=== PATIENT | female | born 1950 | race Caucasian/White ===

== ENCOUNTER → 2016-12-21 | Outpatient (CLI) | payer OTHER ==
--- NOTE | 2016-12-21 10:53 | US ---
ULTRASOUND EXAMINATION OF the left lower extremity WITH DOPPLER HISTORY: Soft tissue disorders FINDINGS: Examination of the left leg was performed from the groin to the calf region. Common femoral and prox imal femoral veins appear patent with good compressibility. There is possibly a tiny filling defect within the mid to proximal femoral vein with incomplete compressibility similarly the popliteal vein appears incompletely compressible. Adequate color and spectral flow are noted along the size of the se areas. Good augmentation is present. The calf veins appear normal. IMPRESSION: 1. Incomplete compressible filling defect within the femoral vein and popliteal veins. This could be secondary to an old chronic venous thrombus, possibly a forming acute DVT.
== END ==
LOC: MW.CHFP 09:26
PROVIDERS: ATTEND Emergency Medicine
DX: N18.3 Chronic kidney disease, stage 3 (moderate) (principal); I10 Essential (primary) hypertension; M79.89 Other specified soft tissue disorders; I82.402 Acute embolism and thrombosis of unspecified deep veins of left lower extremity
CPT/HCPCS: 36415; 80048; 85027; 85610; 93971-26-LT; 93971-LT

== ENCOUNTER 2017-02-01 10:57 | Day surgery (SDC) | payer OTHER ==
[~2017-02-01 10:57] MED LIST: Lactated Ringers 1,000 ML IV SCH; Lidocaine 2% 5 ML SDV ONE; Propofol 200 MG/20 ML SDV ONE; fentaNYL 100 MCG/2 ML SDV ONE
--- NOTE | 2017-02-01 11:36 | PCM.PREANE ---
Preanesthetic Assessment - Anesthesia/Transfusion/Family Hx Anesthesia History: Prior Anesthesia Reaction Other Type of Anesthesia Reaction Comment: pt states she has problems with N/V post anesthesia Family History of Anesthesia Reaction: No Transfusion History: No Prior Transfusion(s) Intubation History: Unknown - Review of Systems General: No Symptoms Pulmonary: No Symptoms Cardiovascular: No Symptoms Neurological: No Symptoms Other: Reports: None - Physical Assessment Height: 1.65 m Weight: 70.307 kg ASA Class: 3 Mental Status: Alert & Oriented x3 Airway Class: Mallampati = 2 Dentition: Reports: Normal Dentition Thyro-Mental Finger Breadths: 3 Mouth Opening Finger Breadths: 3 ROM/Head Extension: Full Lungs: Clear to auscultation, Normal respiratory effort Cardiovascular: Regular Rate, Regular Rhythm - Allergies Allergies/Adverse Reactions: Allergies Allergy/AdvReac Type Severity Reaction Status Date / Time No Known Allergies Allergy Verified 01/27/17 15:57 - Blood Blood Available: No - Anesthesia Plan Pre-Op Medication Ordered: None - Acknowledgements Anesthesia Type Planned: MAC Pt an Appropriate Candidate for the Planned Anesthesia: Yes Alternatives and Risks of Anesthesia Discussed w Pt/Guardian: Yes Pt/Guardian Understands and Agrees with Anesthesia Plan: Yes PreAnesthesia Questionnaire Other HEENT History: wears glasses Cardiovascular History: Reports: Blood clots/VTE/DVT Other Cardiovascular History: currently taking Xarelto for DVT, h/o HTN Respiratory History: Reports: None Gastrointestinal History: Reports: None Genitourinary History: Reports: Renal disease Other Genitourinary History: On dialysis for a week three years ago. Stage 3 renal disease due to HLH affecting her kidneys at present time. HR RECRUITER History: Reports: Other OB/BYN History: "tied my bladder up" Musculoskeletal History: Reports: Other (see below) Other Musculoskeletal History: osteopenia Neurological History: Reports: None Psychiatric History: Reports: None Endocrine/Metabolic History: Reports: None Hematologic History: Reports: None Immunologic History: Reports: Other (see below) Other Immunologic History: Hemophagoctic Lymphohistiocystosis Oncologic (Cancer) History: Reports: Breast (metastatic treated with mastectomy , chemo and radiation -), Ovarian (oophorectomy 01/09 for metastatic cancer), Uterine, Other (see below) (elevated CA-125) Dermatologic History: Reports: None - Past Surgical History Head Surgeries/Procedures: Reports: None HEENT Surgical History: Reports: None Cardiovascular Surgical History: Reports: None Respiratory Surgical History: Reports: None GI Surgical History: Reports: None Female Surgical History: Reports: section, Hysterectomy, Salpingo- oophorectomy Endocrine Surgical History: Reports: None Neurological Surgical History: Reports: None Musculoskeletal Surgical History: Reports: None Oncologic Surgical History: Reports: Mastectomy Other Oncologic Surgeries/Procedures: Hysterectomy, BSO Dermatological Surgical History: Reports: None Other Surgical History Comment: port-a-cath placement and removal - SUBSTANCE USE Smoking Status *Q: Never Smoker Second Hand Smoke Exposure: No Days Per Week of Alcohol Use: 0 Recreational Drug Use History: No - HOME MEDS Home Medications: Home Meds cycloSPORINE [Restasis] 1 drop EYEBOTH BID 06/03/15 [History] Alendronate Sodium [Alendronate] 5 mg PO QAM 01/27/17 [History] Anastrozole [Arimidex] 1 mg PO DAILY 01/27/17 [History] Calcium Carbonate/Vitamin D3 [Calcium 500 + Vit D 400] 1 tab PO DAILY 01/27/17 [ History] Rivaroxaban [Xarelto] 20 mg PO DAILY 01/27/17 [History] - CURRENT (IN HOUSE) MEDS Current Meds: Current Medications Lactated Ringer's (Ringers, Lactated) 1,000 mls @ 125 mls/hr IV ASDIRECTED [facility] Last Admin: 02/01/17 11:30 Dose: 125 mls/hr Discontinued Medications Fentanyl (Sublimaze) Confirm Administered Dose 100 mcg .ROUTE .STK-MED ONE Stop: 02/01/17 10:06 Lidocaine (Xylocaine-Mpf 2%) Confirm Administered Dose 5 ml .ROUTE .STK-MED ONE Stop: 02/01/17 10:05 Propofol (Diprivan 20 Ml) Confirm Administered Dose 400 mg .ROUTE .STK-MED ONE Stop: 02/01/17 10:06
--- NOTE | 2017-02-01 11:51 | PCM.OPNOTE ---
- General Post-Op/Procedure Note Date of Surgery/Procedure: 02/01/17 Operative Procedure(s): egd Findings: see dict [id number] Pre Op Diagnosis: abnl imaging study esophagus Post-Op Diagnosis: esophagitis Anesthesia Technique: Moderate sedation Primary Surgeon: Eric Morgan Complications: None Condition: Good
--- NOTE | 2017-02-01 11:55 | PCM.POSTAN ---
POST ANESTHESIA ASSESSMENT - MENTAL STATUS Mental Status: alert, oriented - RESPIRATORY Respiratory Status: respiratory rate WNL, airway patent, O2 saturation stable - CARDIOVASCULAR CV Status: pulse rate WNL, blood pressure stable - GASTROINTESTINAL GI Status: no symptoms - POST OP HYDRATION Hydration Status: adequate & stable - OBSERVATIONS Free Text/Narrative:: no anesthesiia problems
[2017-02-01 13:35] VITALS: BP 100/55
--- NOTE | 2017-02-01 19:59 | OR ---
SURGEON: Eric Morgan MD DATE OF PROCEDURE: 02/01/2017 PREOPERATIVE DIAGNOSIS: Abnormal imaging study of distal esophagus. POSTOPERATIVE DIAGNOSIS: Esophagitis. PROCEDURE PERFORMED: EGD without biopsy. COMPLICATIONS: None. DESCRIPTION OF PROCEDURE: The patient was taken to the endoscopy room, and with the [employer], Diprivan was administered. A well-lubricated EGD scope was gently inserted through the oropharynx, down the esophagus, passing through the gastroesophageal junction, into the stomach. The mucosa was examined upon the passage. Any etiology will be noted. Once in the stomach, we continued to advance to the distal antrum, passed through the pylorus into the second portion of the duodenum. Again, the mucosa was examined for any abnormality and etiology. The scope was then retrieved back to the stomach and then retroflexed to look at the fundus of the stomach. The air will be sucked out while the scope is retrieved to reduce the patient's discomfort. The patient tolerated the procedure well. There were no intraoperative complications. Dr. Morgan was present through the whole procedure. Prior to surgery, a time-out had been called, the patient identified, procedure identified and antibiotic administered. FINDINGS: 1. The patient was easily sedated with [employer] and Diprivan. The patient is soundly snoring. 2. Oropharynx and proximal esophagus was free of disease and no inflammation, stricture, ulceration. Distal esophagitis with salmon color change with what looks like an area of esophagitis. No ulceration. No blood. It is linear streaking right at the GE junction at 40. Stomach rugae is normal in appearance. No blood, bile, or food particle and antrum is a little bit inflamed and duodenum was grossly normal. The scope retrieved back to the stomach. Retroflexed to look at the fundus of stomach and there is no hiatal hernia or any other etiology; took a lot of picture in the distal esophagus and sucked out air while scope pulling out. LEONIE / DARI /[id number] TERRI
== END 2017-02-01 12:45 | disposition home or self-care (01) ==
LOC: MW.SDS 10:57
PROVIDERS: ATTEND Surgery
DX: K20.9 Esophagitis, unspecified (principal); I12.9 Hypertensive chronic kidney disease with stage 1 through stage 4 chronic kidney disease, or unspecified chronic kidney disease; N18.3 Chronic kidney disease, stage 3 (moderate); D76.1 Hemophagocytic lymphohistiocytosis; D64.9 Anemia, unspecified; I82.402 Acute embolism and thrombosis of unspecified deep veins of left lower extremity; M85.80 Other specified disorders of bone density and structure, unspecified site; Z85.3 Personal history of malignant neoplasm of breast; Z90.11 Acquired absence of right breast and nipple; Z78.0 Asymptomatic menopausal state; Z79.01 Long term (current) use of anticoagulants; Z79.52 Long term (current) use of systemic steroids; Z79.899 Other long term (current) drug therapy; Z90.710 Acquired absence of both cervix and uterus; Z90.722 Acquired absence of ovaries, bilateral; Z98.890 Other specified postprocedural states
CPT/HCPCS: 43235; J3010; J7120; 00740; J2704

== ENCOUNTER 2019-04-08 10:45 | Emergency (ER) | payer MEDICARE, OTHER ==
--- NOTE | 2019-04-08 11:59 | EDM.PDOC ---
ED HPI GENERAL MEDICAL PROBLEM - General Chief Complaint: Skin Complaint Stated Complaint: RASH ON LEGS Time Seen by Provider: 04/08/19 11:00 Source of Information: Reports: Patient History Limitations: Reports: No Limitations - History of Present Illness INITIAL COMMENTS - FREE TEXT/NARRATIVE: HISTORY AND PHYSICAL: History of present illness: Patient is a 68-year-old female presents to the ED with complaint of rash. She has a history of breast cancer, recently diagnosed with metastases to the bones. She was started on chemotherapy injections 1 month ago, last injections being 2 weeks ago. She was also taking a chemo pill but stopped this due to a low white count. She states she noticed the rash 2 days ago when her legs were itching. Rash has since spread to her whole body. She denies fevers, chills, nausea, vomiting, abdominal pain, cough, chest pain, SOB. Patient had labs drawn 4 days ago with [facility], WBC count 1.41, RBC 3.1, Hgb 9.3 , and Hct 28.5. She has a follow up with urology and oncologist this week. Review of systems: As per history of present illness and below otherwise all systems reviewed and negative. Past medical history: As per history of present illness and as reviewed below otherwise noncontributory. Surgical history: As per history of present illness and as reviewed below otherwise noncontributory. Social history: No reported history of drug or alcohol abuse. Family history: As per history of present illness and as reviewed below otherwise noncontributory. Physical exam: General: Patient sitting comfortably in no acute distress and nontoxic appearing HEENT: Atraumatic, normocephalic, pupils reactive, negative for conjunctival pallor or scleral icterus, mucous membranes moist, throat clear, neck supple, nontender, trachea midline. No meningeal signs. Lungs: Clear to auscultation, breath sounds equal bilaterally, chest nontender. Heart: S1S2, regular, negative for clicks, rubs, or overt murmur. Abdomen: Soft, nondistended, nontender. Negative for masses or hepatosplenomegaly. Negative for costovertebral tenderness. No rigidity, rebound , guarding. Pelvis: Stable nontender. Genitourinary: Deferred. Rectal: Deferred. Skin: Petechial rash of the lower legs bilaterally. There is a fine pink papular rash on her trunk. Extremities: Atraumatic, negative for cords or calf pain. Neurovascular unremarkable. Neuro: Awake, alert, oriented. Cranial nerves II through XII unremarkable. Cerebellum unremarkable. Motor and sensory unremarkable throughout. Exam nonfocal. Notes: Diagnostics: CBC, CMP, PT/INR, PTT Therapeutics: None Prescriptions: None Impression: Petechial rash Plan: 1. Follow up with primary care provider 2. Return to ED as needed as discussed Definitive disposition and diagnosis as appropriate pending reevaluation and review of above. - Related Data Allergies Allergy/AdvReac Type Severity Reaction Status Date / Time No Known Allergies Allergy Verified 04/20/18 08:44 Home Meds: Home Meds cycloSPORINE [Restasis] 1 drop EYEBOTH BID 06/03/15 [History] Tamsulosin HCl 1 tab PO DAILY 04/08/19 [History] Past Medical History HEENT History: Reports: Other (See Below) Other HEENT History: wears glasses Cardiovascular History: Reports: Blood Clots/VTE/DVT Other Cardiovascular History: hx of DVT in left lower leg- took Xarelto Respiratory History: Reports: Other (See Below) Other Respiratory History: 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 Gastrointestinal History: Reports: Diverticulosis Genitourinary History: Reports: Other (See Below) Other Genitourinary History: states has some decreased kidney function NUTRITION COORDINATOR History: Reports: Other NUTRITION COORDINATOR History: "tied my bladder up" Musculoskeletal History: Reports: Other (See Below) Other Musculoskeletal History: osteopenia Neurological History: Psychiatric History: Reports: None Endocrine/Metabolic History: Reports: None Hematologic History: Reports: Anemia Immunologic History: Reports: Other (See Below) Other Immunologic History: Hemophagoctic Lymphohistiocystosis Oncologic (Cancer) History: Reports: Bone, Breast, Ovarian Dermatologic History: Reports: None - Infectious Disease History Infectious Disease History: Reports: Chicken Pox, Measles, Mumps, Shingles - Past Surgical History Head Surgeries/Procedures: Reports: None HEENT Surgical History: Reports: None Other HEENT Surgeries/Procedures: septum surgery Cardiovascular Surgical History: Reports: None Respiratory Surgical History: Reports: None GI Surgical History: Reports: Colonoscopy, EGD Female Surgical History: Reports: Section, Mastectomy, Salpingo- Oophorectomy Endocrine Surgical History: Reports: None Neurological Surgical History: Reports: None Musculoskeletal Surgical History: Reports: None Oncologic Surgical History: Reports: Mastectomy Other Oncologic Surgeries/Procedures: Hysterectomy, BSO Dermatological Surgical History: Reports: None Social & Family History - Tobacco Use Smoking Status *Q: Never Smoker - Recreational Drug Use Recreational Drug Use: No ED ROS GENERAL - Review of Systems Review Of Systems: ROS reveals no pertinent complaints other than HPI. ED EXAM, SKIN/RASH Exam: See Below (see dictation) Course - Vital Signs Last Recorded V/S: Last Vital Signs Temp 97.1 F 04/08/19 10:51 Pulse 96 04/08/19 10:51 Resp 18 04/08/19 10:51 BP 125/73 04/08/19 10:51 Pulse Ox 99 04/08/19 10:51 - Orders/Labs/Meds Labs: Laboratory Tests 04/08/19 04/08/19 04/08/19 Range/Units 11:35 11:35 11:35 WBC 2.25 L (4.0-11.0) K/uL RBC 3.15 L (4.30-5.90) M/uL Hgb 9.3 L (12.0-16.0) g/dL Hct 28.1 L (36.0-46.0) % MCV 89.2 (80.0-98.0) fL MCH 29.5 (27.0-32.0) pg MCHC 33.1 (31.0-37.0) g/dL RDW Std Deviation 53.6 (28.0-62.0) fl RDW Coeff of Brandi 19 H (11.0-15.0) % Plt Count 143 L (150-400) K/uL MPV 9.70 (7.40-12.00) fL Add Manual Diff YES Neutrophils % (Manual) 60 (48.0-80.0) % Lymphocytes % (Manual) 28 (16.0-40.0) % Monocytes % (Manual) 12 (0.0-15.0) % Nucleated RBC % 0.0 /100WBC Absolute Seg Neuts 1.4 (1.4-5.7) Lymphocytes # (Manual) 0.6 (0.6-2.4) Monocytes # (Manual) 0.3 (0.0-0.8) Nucleated RBCs # 0 K/uL INR 1.01 APTT 26.6 (18.6-31.3) SEC Sodium 141 (136-145) mmol/L Potassium 4.2 (3.5-5.1) mmol/L Chloride 107 (98-107) mmol/L Carbon Dioxide 23.1 (21.0-32.0) mmol/L BUN 20 H (7.0-18.0) mg/dL Creatinine 1.1 H (0.6-1.0) mg/dL Est Cr Clr Drug Dosing 43.44 mL/min Estimated GFR (MDRD) 49.7 ml/min Glucose 88 (74-106) mg/dL Calcium 8.9 (8.5-10.1) mg/dL Total Bilirubin 0.6 (0.2-1.0) mg/dL AST 17 (15-37) IU/L ALT 20 (14-63) IU/L Alkaline Phosphatase 63 (46-116) U/L Total Protein 7.0 (6.4-8.2) g/dL Albumin 3.8 (3.4-5.0) g/dL Globulin 3.2 (2.6-4.0) g/dL Albumin/Globulin Ratio 1.2 (0.9-1.6) Departure - Departure Time of Disposition: 12:47 Disposition: Home, Self-Care 01 Condition: Good Clinical Impression: Petechial rash - Discharge Information Referrals: Michael Kyle MD [Primary Care Provider] - Forms: ED Department Discharge Additional Instructions: The following information is given to patients seen in the emergency department who are being discharged to home. This information is to outline your options for follow-up care. We provide all patients seen in our emergency department with a follow-up referral. The need for follow-up, as well as the timing and circumstances, are variable depending upon the specifics of your emergency department visit. If you don't have a primary care physician on staff, we will provide you with a referral. We always advise you to contact your personal physician following an emergency department visit to inform them of the circumstance of the visit and for follow-up with them and/or the need for any referrals to a consulting specialist. The emergency department will also refer you to a specialist when appropriate. This referral assures that you have the opportunity for follow-up care with a specialist. All of these measure are taken in an effort to provide you with optimal care, which includes your follow-up. Under all circumstances we always encourage you to contact your private physician who remains a resource for coordinating your care. When calling for follow-up care, please make the office aware that this follow-up is from your recent emergency room visit. If for any reason you are refused follow-up, please contact the [facility] Emergency Department at and asked to speak to the emergency department charge nurse. [facility] [address] [place] [id number] [facility] [address] [place] [id number] 1. Follow up with primary care provider 2. Return to ED as needed as discussed
[2019-04-08 13:00] VITALS: BP 101/60
== END 2019-04-08 13:00 | disposition home or self-care (01) ==
LOC: MW.ED 10:45
DX: R23.3 Spontaneous ecchymoses (principal); Z79.899 Other long term (current) drug therapy
CPT/HCPCS: 36415; 80053; 85025; 85610; 85730; 99282; 99283

== ENCOUNTER 2019-07-27 19:35 | Emergency (ER) | payer MEDICARE, OTHER ==
[2019-07-27] MEDS ORDERED: Sodium Chloride 0.9% 2.5 ML Syringe FLUSH PRN (19:52)
[2019-07-27] MEDS ORDERED: Sodium Chloride 0.9% 10 ML Syringe FLUSH PRN (19:52)
[2019-07-27] MEDS ORDERED: Acetaminophen 500 MG Tab PO ONE (19:53)
--- NOTE | 2019-07-27 19:59 | EDM.PDOC ---
ED HPI GENERAL MEDICAL PROBLEM - General Chief Complaint: Fever Stated Complaint: SPOKE TO NURSE Time Seen by Provider: 07/27/19 19:45 - History of Present Illness INITIAL COMMENTS - FREE TEXT/NARRATIVE: HISTORY AND PHYSICAL: History of present illness: The patient is a 69-year-old female who follows with [facility] and [facility] with their cancer care center and is currently receiving injections of chemotherapy 2 times per month as well as taking oral chemotherapy for breast cancer that has metastasized to bone; she presents today because she had a fever of 100.6 at home and is currently 101.6 and is following directions from her cancer doctor to come for evaluation. The patient says she has really no symptoms except a little scratchiness in her throat which she was not worried or concerned about and she has had no cough no head or neck pain no rashes no abdominal pain no nausea vomiting shortness of breath or diarrhea. She did tell her cancer doctor about 10 days ago that she thought her urine had a functional smell but as she had no dysuria frequency or urgency and the urine was not tested. The patient had her last chemotherapy shot on July 18 and this is her week off from shots and she did feel chilly throughout the afternoon and then noted the fever this evening. She says that her white blood cell count was 2.14 last week and she can best recall. The patient does have a history of breast cancer with mastectomy and aggressive treatment 11 years ago which went into remission and then 3 years ago she had her ovaries removed for cancer and she was treated again and this past January she was rediagnosed with the breast cancer with bony metastasis and has been following at the cancer care center in [place] along with [facility]. She does have a local family doctor he sees for regular checkups and she does not get a flu shot as her cancer doctor asked her to not obtain that while she was on current treatment. Patient did not take any medications for the fever prior to coming here and she is eating and drinking normally. She has no flank pain no neck or back pain and again no rashes. She says she is only here because she read that if she has a fever and is on his medications the papers told her that she needed to seek care. She says that she is concerned she might be neutropenic The patient does not have a port in place. The patient's oral chemotherapy is Palbociclib orally ( a cyclin dependent kinase CDK 4/6 inhibitor) and Fulvestrant IM -- homonal therapy Review of systems: As per history of present illness and below otherwise all systems reviewed and negative. Past medical history: As per history of present illness and as reviewed below otherwise noncontributory. Surgical history: As per history of present illness and as reviewed below otherwise noncontributory. Social history: No reported history of drug or alcohol abuse. Family history: As per history of present illness and as reviewed below otherwise noncontributory. Physical exam: General: Well-developed well-nourished female who is nontoxic and vital signs are noted by me. She is speaking clearly without breathlessness or hoarse or muffled voice and moves easily in the ED without distress. HEENT: Atraumatic, normocephalic, pupils reactive, negative for conjunctival pallor or scleral icterus, mucous membranes moist, throat clear, neck supple, nontender, trachea midline. There is no oral pharyngeal erythema or exudates there is no cervical adenopathy or nuchal rigidity Lungs: Clear to auscultation, breath sounds equal bilaterally, chest nontender. There is no wheezing stridor or work of breathing Heart: S1S2, regular, negative for clicks, rubs, or JVD. Abdomen: Soft, nondistended, nontender. Negative for masses or hepatosplenomegaly. Negative for costovertebral tenderness. Pelvis: Stable nontender. Genitourinary: Deferred. Rectal: Deferred. Extremities: Atraumatic, negative for cords or calf pain. Neurovascular unremarkable. Neuro: Awake, alert, oriented. Cranial nerves II through XII unremarkable. Cerebellum unremarkable. Motor and sensory unremarkable throughout. Exam nonfocal. Skin: Turgor is normal and there is no evidence of any overt rashes or lesions Diagnostics: CBC CMP UA urine culture blood cultures influenza swab rapid strep lactic acid chest x-ray Therapeutics: Saline lock Tylenol IV fluids Levaquin 2124:Her repeat temperature is 100 after 1 g of Tylenol. I'm currently awaiting her UA results as well as chest x-ray and will contact her oncologist for further management 2244: I have been attempting to get a hold of the on-call oncologist at [facility], Dr. Pham. He has not been returning his pages so I will continue to have one call attempt to get a hold of them so I can discuss this case with him. The patient does follow with the oncology clinic there. As her urine is significant for a UTI I will go ahead and give her a dose of Levaquin here and discharge her home on Levaquin and I discussed with her testing results and need to connect with her oncologist on Tuesday. I will continue to attempt to get a hold of this oncologist to discuss this case and I will call the patient with any changes in care plan as needed. The patient is currently not neutropenic with a white cell count of 3.09 and a rough ANC of 1854. Impression: Fever with history of chemotherapy , UTI Definitive disposition and diagnosis as appropriate pending reevaluation and review of above. - Related Data Allergies Allergy/AdvReac Type Severity Reaction Status Date / Time No Known Allergies Allergy Verified 07/27/19 19:40 Home Meds: Home Meds Fulvestrant [Faslodex] 250 mg IM ASDIRECTED 07/27/19 [History] Palbociclib [Ibrance] 75 mg PO ASDIRECTED 07/27/19 [History] Past Medical History HEENT History: Reports: Other (See Below) Other HEENT History: wears glasses Cardiovascular History: Reports: Blood Clots/VTE/DVT Other Cardiovascular History: hx of DVT in left lower leg- took Xarelto Respiratory History: Reports: Other (See Below) Other Respiratory History: 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 Gastrointestinal History: Reports: Diverticulosis Genitourinary History: Reports: Other (See Below) Other Genitourinary History: states has some decreased kidney function VESSEL OPERATOR History: Reports: Other VESSEL OPERATOR History: "tied my bladder up" Musculoskeletal History: Reports: Other (See Below) Other Musculoskeletal History: osteopenia Neurological History: Psychiatric History: Reports: None Endocrine/Metabolic History: Reports: None Hematologic History: Reports: Anemia Immunologic History: Reports: Other (See Below) Other Immunologic History: Hemophagoctic Lymphohistiocystosis Oncologic (Cancer) History: Reports: Bone, Breast, Ovarian Dermatologic History: Reports: None - Infectious Disease History Infectious Disease History: Reports: Chicken Pox, Measles, Mumps, Shingles - Past Surgical History Head Surgeries/Procedures: Reports: None HEENT Surgical History: Reports: None Other HEENT Surgeries/Procedures: septum surgery Cardiovascular Surgical History: Reports: None Respiratory Surgical History: Reports: None GI Surgical History: Reports: Colonoscopy, EGD Female Surgical History: Reports: Section, Mastectomy, Salpingo- Oophorectomy Endocrine Surgical History: Reports: None Neurological Surgical History: Reports: None Musculoskeletal Surgical History: Reports: None Oncologic Surgical History: Reports: Mastectomy Other Oncologic Surgeries/Procedures: Hysterectomy, BSO Dermatological Surgical History: Reports: None Social & Family History - Family History Family Medical History: Noncontributory - Tobacco Use Smoking Status *Q: Never Smoker Second Hand Smoke Exposure: No - Caffeine Use Caffeine Use: Reports: Coffee - Recreational Drug Use Recreational Drug Use: No ED ROS GENERAL - Review of Systems Review Of Systems: ROS reveals no pertinent complaints other than HPI. ED EXAM, GENERAL - Physical Exam Exam: See Below (See dictation) Course - Vital Signs Last Recorded V/S: Last Vital Signs Temp 37.8 C 07/27/19 20:32 Pulse 107 H 07/27/19 19:42 Resp 18 07/27/19 19:42 BP 133/52 L 07/27/19 19:42 Pulse Ox 98 07/27/19 19:42 - Orders/Labs/Meds Orders: Active Orders 24 hr Category Date Time Status Communication Order [RC] STAT Care 07/27/19 20:28 Active Oxygen Therapy, ED [RC] ASDIRECTED Care 07/27/19 19:52 Active Pulse Oximetry [RC] ASDIRECTED Care 07/27/19 19:52 Active CULTURE BLOOD [BC] Stat Lab 07/27/19 20:50 Received CULTURE BLOOD [] Stat Lab 07/27/19 21:05 Received CULTURE STREP A CONFIRMATION [] Stat Lab 07/27/19 20:03 Results CULTURE URINE [] Stat Lab 07/27/19 21:00 Received STREP SCRN A RAPID W CULT CONF [] Stat Lab 07/27/19 20:03 Results Levofloxacin/Dextrose 5%-Water [Levaquin in D5W 500 MG/ Med 07/27/19 21:47 Ordered 100 ML] 500 mg Premix Bag 1 bag IV ONETIME Sodium Chloride 0.9% [Normal Saline] 1,000 ml Med 07/27/19 21:05 Active IV STAT Sodium Chloride 0.9% [Saline Flush] Med 07/27/19 19:52 Active 10 ml FLUSH ASDIRECTED PRN Sodium Chloride 0.9% [Saline Flush] Med 07/27/19 19:52 Active 2.5 ml FLUSH ASDIRECTED PRN Blood Culture x2 Reflex Set [OM.PC] Stat Ot 07/27/19 19:52 Ordered Saline Lock Insert [OM.PC] Stat Ot 07/27/19 19:52 Ordered Medication Orders Sodium Chloride (Normal Saline) 1,000 mls @ 999 mls/hr IV STAT ONE Stop: 07/27/19 22:05 Last Admin: 07/27/19 21:23 Dose: 999 mls/hr Sodium Chloride (Saline Flush) 10 ml FLUSH ASDIRECTED PRN PRN Reason: Keep Vein Open Sodium Chloride (Saline Flush) 2.5 ml FLUSH ASDIRECTED PRN PRN Reason: Keep Vein Open Labs: Laboratory Tests 07/27/19 07/27/19 07/27/19 Range/Units 20:30 20:30 20:30 WBC 3.09 L (4.0-11.0) K/uL RBC 2.74 L (4.30-5.90) M/uL Hgb 9.3 L (12.0-16.0) g/dL Hct 27.1 L (36.0-46.0) % MCV 98.9 H (80.0-98.0) fL MCH 33.9 H (27.0-32.0) pg MCHC 34.3 (31.0-37.0) g/dL RDW Std Deviation 50.9 (28.0-62.0) fl RDW Coeff of Brandi 14 (11.0-15.0) % Plt Count 87 L (150-400) K/uL MPV 9.80 (7.40-12.00) fL Neut % (Auto) 60.8 (48.0-80.0) % Lymph % (Auto) 28.8 (16.0-40.0) % Otero % (Auto) 9.4 (0.0-15.0) % Eos % (Auto) 0.0 (0.0-7.0) % Baso % (Auto) 1.0 (0.0-1.5) % Neut # (Auto) 1.9 (1.4-5.7) K/uL Lymph # (Auto) 0.9 (0.6-2.4) K/uL Otero # (Auto) 0.3 (0.0-0.8) K/uL Eos # (Auto) 0.0 (0.0-0.7) K/uL Baso # (Auto) 0.0 (0.0-0.1) K/uL Nucleated RBC % 0.0 /100WBC Nucleated RBCs # 0 K/uL Lactate 0.5 (0.20-2.00) mmol/L Sodium 141 (136-145) mmol/L Potassium 3.9 (3.5-5.1) mmol/L Chloride 105 (98-107) mmol/L Carbon Dioxide 26.5 (21.0-32.0) mmol/L BUN 22 H (7.0-18.0) mg/dL Creatinine 1.2 H (0.6-1.0) mg/dL Est Cr Clr Drug Dosing 42.59 mL/min Estimated GFR (MDRD) 44.8 ml/min Glucose 90 (74-106) mg/dL Calcium 8.7 (8.5-10.1) mg/dL Total Bilirubin 0.6 (0.2-1.0) mg/dL AST 17 (15-37) IU/L ALT 20 (14-63) IU/L Alkaline Phosphatase 44 L (46-116) U/L Total Protein 7.0 (6.4-8.2) g/dL Albumin 3.7 (3.4-5.0) g/dL Globulin 3.3 (2.6-4.0) g/dL Albumin/Globulin Ratio 1.1 (0.9-1.6) Urine Color Urine Appearance Urine pH (5.0-8.0) Ur Specific [place] (1.001-1.035) Urine Protein (NEGATIVE) mg/dL Urine Glucose (UA) (NEGATIVE) mg/dL Urine Ketones (NEGATIVE) mg/dL Urine Occult Blood (NEGATIVE) Urine Nitrite (NEGATIVE) Urine Bilirubin (NEGATIVE) Urine Urobilinogen (<2.0) EU/dL Ur Leukocyte Esterase (NEGATIVE) Urine RBC (0-2/HPF) Urine WBC (0-5/HPF) Ur Epithelial Cells (NONE-FEW) Urine Bacteria (NEGATIVE) Urine Mucus (NONE-MOD) 07/27/19 Range/Units 21:00 WBC (4.0-11.0) K/uL RBC (4.30-5.90) M/uL Hgb (12.0-16.0) g/dL Hct (36.0-46.0) % MCV (80.0-98.0) fL MCH (27.0-32.0) pg MCHC (31.0-37.0) g/dL RDW Std Deviation (28.0-62.0) fl RDW Coeff of Brandi (11.0-15.0) % Plt Count (150-400) K/uL MPV (7.40-12.00) fL Neut % (Auto) (48.0-80.0) % Lymph % (Auto) (16.0-40.0) % Otero % (Auto) (0.0-15.0) % Eos % (Auto) (0.0-7.0) % Baso % (Auto) (0.0-1.5) % Neut # (Auto) (1.4-5.7) K/uL Lymph # (Auto) (0.6-2.4) K/uL Otero # (Auto) (0.0-0.8) K/uL Eos # (Auto) (0.0-0.7) K/uL Baso # (Auto) (0.0-0.1) K/uL Nucleated RBC % /100WBC Nucleated RBCs # K/uL Lactate (0.20-2.00) mmol/L Sodium (136-145) mmol/L Potassium (3.5-5.1) mmol/L Chloride (98-107) mmol/L Carbon Dioxide (21.0-32.0) mmol/L BUN (7.0-18.0) mg/dL Creatinine (0.6-1.0) mg/dL Est Cr Clr Drug Dosing mL/min Estimated GFR (MDRD) ml/min Glucose (74-106) mg/dL Calcium (8.5-10.1) mg/dL Total Bilirubin (0.2-1.0) mg/dL AST (15-37) IU/L ALT (14-63) IU/L Alkaline Phosphatase (46-116) U/L Total Protein (6.4-8.2) g/dL Albumin (3.4-5.0) g/dL Globulin (2.6-4.0) g/dL Albumin/Globulin Ratio (0.9-1.6) Urine Color YELLOW Urine Appearance CLOUDY Urine pH 6.5 (5.0-8.0) Ur Specific [place] 1.015 (1.001-1.035) Urine Protein 30 H (NEGATIVE) mg/dL Urine Glucose (UA) NEGATIVE (NEGATIVE) mg/dL Urine Ketones NEGATIVE (NEGATIVE) mg/dL Urine Occult Blood LARGE H (NEGATIVE) Urine Nitrite POSITIVE H (NEGATIVE) Urine Bilirubin NEGATIVE (NEGATIVE) Urine Urobilinogen 0.2 (<2.0) EU/dL Ur Leukocyte Esterase LARGE H (NEGATIVE) Urine RBC 25-30 (0-2/HPF) Urine WBC 55-60 (0-5/HPF) Ur Epithelial Cells FEW (NONE-FEW) Urine Bacteria 1+ H (NEGATIVE) Urine Mucus LIGHT (NONE-MOD) Meds: Medications Generic Name Dose Route Start Last Admin Trade Name Freq PRN Reason Stop Dose Admin Sodium Chloride 1,000 mls @ 999 mls/hr 07/27/19 21:05 07/27/19 21:23 Normal Saline IV 07/27/19 22:05 999 mls/hr STAT ONE Administration Sodium Chloride 10 ml 07/27/19 19:52 Saline Flush FLUSH ASDIRECTED PRN Keep Vein Open Sodium Chloride 2.5 ml 07/27/19 19:52 Saline Flush FLUSH ASDIRECTED PRN Keep Vein Open Discontinued Medications Generic Name Dose Route Start Last Admin Trade Name Freq PRN Reason Stop Dose Admin Acetaminophen 1,000 mg 07/27/19 19:53 07/27/19 20:02 Tylenol Extra Strength PO 07/27/19 19:54 1,000 mg ONETIME ONE Administration Departure - Departure Time of Disposition: 21:49 Disposition: Home, Self-Care 01 Condition: Good Clinical Impression: History of chemotherapy UTI (urinary tract infection) Qualifiers: Urinary tract infection type: site unspecified Hematuria presence: without hematuria Qualified Code(s): N39.0 - Urinary tract infection, site not specified Fever Qualifiers: Fever type: unspecified Qualified Code(s): R50.9 - Fever, unspecified - Discharge Information Referrals: PCP,None [Primary Care Provider] - Forms: ED Department Discharge Additional Instructions: The following information is given to patients seen in the emergency department who are being discharged to home. This information is to outline your options for follow-up care. We provide all patients seen in our emergency department with a follow-up referral. The need for follow-up, as well as the timing and circumstances, are variable depending upon the specifics of your emergency department visit. If you don't have a primary care physician on staff, we will provide you with a referral. We always advise you to contact your personal physician following an emergency department visit to inform them of the circumstance of the visit and for follow-up with them and/or the need for any referrals to a consulting specialist. The emergency department will also refer you to a specialist when appropriate. This referral assures that you have the opportunity for followup care with a specialist. All of these measure are taken in an effort to provide you with optimal care, which includes your followup. Under all circumstances we always encourage you to contact your private physician who remains a resource for coordinating your care. When calling for followup care, please make the office aware that this follow-up is from your recent emergency room visit. If for any reason you are refused follow-up, please contact the [facility] emergency department at and ask to speak to the emergency department charge nurse. [facility] Primary care- Internal [place] [address] Please continue to push fluids and monitor your temperature treating it with Tylenol or [id number] ibuprofen. These take the Levaquin as you have been prescribed taking the first dose tomorrow afternoon as you have been given a dose here. I will continue to try to connect with your oncology team at [facility] for please connect with them on Tuesday to let them know how you're doing. If any results from your blood or urine cultures indicate a change in treatment plan he will be contacted by one of our nursing staff. Return to ER as needed and as discussed. - My Orders Last 24 Hours: My Active Orders 07/27/19 19:52 Oxygen Therapy, ED [RC] ASDIRECTED Pulse Oximetry [RC] ASDIRECTED Sodium Chloride 0.9% [Saline Flush] 10 ml FLUSH ASDIRECTED PRN Sodium Chloride 0.9% [Saline Flush] 2.5 ml FLUSH ASDIRECTED PRN Blood Culture x2 Reflex Set [OM.PC] Stat Saline Lock Insert [OM.PC] Stat 07/27/19 20:03 CULTURE STREP A CONFIRMATION [RM] Stat STREP SCRN A RAPID W CULT CONF [RM] Stat 07/27/19 20:28 Communication Order [RC] STAT 07/27/19 20:50 CULTURE BLOOD [BC] Stat 07/27/19 21:00 CULTURE URINE [RM] Stat 07/27/19 21:05 CULTURE BLOOD [BC] Stat Sodium Chloride 0.9% [Normal Saline] 1,000 ml IV STAT 07/27/19 21:47 Levofloxacin/Dextrose 5%-Water [Levaquin in D5W 500 MG/100 ML] 500 mg Premix Bag 1 bag IV ONETIME - Assessment/Plan Last 24 Hours: My Active Orders 07/27/19 19:52 Oxygen Therapy, ED [RC] ASDIRECTED Pulse Oximetry [RC] ASDIRECTED Sodium Chloride 0.9% [Saline Flush] 10 ml FLUSH ASDIRECTED PRN Sodium Chloride 0.9% [Saline Flush] 2.5 ml FLUSH ASDIRECTED PRN Blood Culture x2 Reflex Set [OM.PC] Stat Saline Lock Insert [OM.PC] Stat 07/27/19 20:03 CULTURE STREP A CONFIRMATION [RM] Stat STREP SCRN A RAPID W CULT CONF [RM] Stat 07/27/19 20:28 Communication Order [RC] STAT 07/27/19 20:50 CULTURE BLOOD [BC] Stat 07/27/19 21:00 CULTURE URINE [RM] Stat 07/27/19 21:05 CULTURE BLOOD [BC] Stat Sodium Chloride 0.9% [Normal Saline] 1,000 ml IV STAT 07/27/19 21:47 Levofloxacin/Dextrose 5%-Water [Levaquin in D5W 500 MG/100 ML] 500 mg Premix Bag 1 bag IV ONETIME
[2019-07-27 20:57] LABS: CARBON DIOXIDE,CO2 26.5 mmol/L (21.0-32.0); POTASSIUM,K 3.9 mmol/L (3.5-5.1)
[2019-07-27] MEDS ORDERED: Sodium Chloride 0.9% 1,000 ML IV ONE (21:05)
--- NOTE | 2019-07-27 21:42 | CR ---
INDICATION: Cough, fever, sore throat COMPARISON: None available. FINDINGS: PA and lateral views of the chest were obtained. The lungs are clear. No focal or diffuse infiltrates are present. The heart is normal in size. The mediastinum is normal in appearance. There is mild scoliosis of the thoracic spine convex towards the left. There is mild anterior wedging of the T6 through T8 vertebral bodies consistent with old mild compression fractures. IMPRESSION: No active disease in the chest. Dictated by Luigi Gillette MD @ Jul 27 2019 9:40PM Signed by Dr. Luigi Gillette @ Jul 27 2019 9:41PM
[2019-07-27] MEDS ORDERED: Levofloxacin/Dextrose 5%-Water 500 MG in Premix Bag 1 BAG IV ONE (21:47)
[2019-07-27 23:25] VITALS: BP 109/38; PULSE 90
== END 2019-07-27 23:21 | disposition home or self-care (01) ==
LOC: MW.ED 19:35
DX: N39.0 Urinary tract infection, site not specified (principal); R50.9 Fever, unspecified
CPT/HCPCS: 36415; 71046; 80053; 81001; 83605; 85025; 87040; 87081; 87086; 87804; 87880; 96361; 96365; 99283; A9270; J1956; J7040; 99285

== ENCOUNTER 2020-06-30 21:46 | Emergency (ER) | payer MEDICARE, OTHER ==
[2020-06-30 21:56] VITALS: BP 124/79; PULSE 91
[2020-07-01] MEDS ORDERED: Cephalexin 500 MG Cap PO ONE (01:24)
--- NOTE | 2020-07-01 01:27 | EDM.PDOC ---
ED HPI GENERAL MEDICAL PROBLEM - General Chief Complaint: Genitourinary Problem Stated Complaint: possible UTI Time Seen by Provider: 06/30/20 23:50 - History of Present Illness INITIAL COMMENTS - FREE TEXT/NARRATIVE: CHIEF COMPLAINT(S): UTI HISTORY OF PRESENT ILLNESS: This is a 69-year-old woman with a past medical history of chronic UTI and unspecified bone cancer who follows up with [facility] and gets triweekly laboratory and urinalysis sent to her clinic who comes to the emergency department with a chief complaint of urinary tract infection. The patient states that she noted today that her urine started to smell foul and that she experienced some right back pain. She denies any fevers or chills. She denies any chest pain, shortness of breath, abdominal pain, nausea or vomiting. She states that she just came into the emergency department because of concern for urinary tract infection. She states that in the past they have given her the antibiotic that people received. She describes her back pain as achy in nature without any radiation. She rates it as 3 out of 10. She denies any aggravating or relieving symptoms. She states that there are no associated symptoms. REVIEW OF SYSTEMS: Constitutional: Denies fever, chills. Eyes: Denies eye pain Ears, Nose, Mouth, & Throat: Denies earache Cardiovascular: Denies chest pain Respiratory: Denies shortness of breath Gastrointestinal: Denies Nausea, vomiting, diarrhea, hematochezia. Genitourinary: Positive for some foul-smelling urine MSK: Positive for right back pain Neurological: Denies blurred vision Psychiatric: Denies depression PAST MEDICAL HISTORY: As per history of present illness and as reviewed below otherwise noncontributory. SURGICAL HISTORY: As per history of present illness and as reviewed below otherwise noncontributory. SOCIAL HISTORY: As per history of present illness and as reviewed below otherwise noncontributory. FAMILY HISTORY: As per history of present illness and as reviewed below otherwise noncontributory. EXAMINATION OF ORGAN SYSTEMS/BODY AREAS: Constitutional: Blood pressure was 124/79, heart rate 91, respiratory rate 16 with an oxygen saturation 9 9% on room air. Temperature 36.2 General: Overall well-appearing elderly woman who is in no acute distress Psychiatric: Appropriate mood and affect. Eyes: No scleral icterus or conjunctival erythema ENMT: Moist mucous membranes. No pharyngeal erythema Cardiovascular: Regular, rate, and rythym. No gallops, murmurs, or rubs. Bilateral upper extremity pulses symmetric and intact. No peripheral edema. No JVD. Respiratory: Lungs clear to auscultation bilaterally. No wheezes, rales, or rhonchi. Gastrointestinal: Soft, non-tender, non-distended. Normoactive bowel sounds Genitourinary: No suprapubic tenderness no CVA tenderness. There is paraspinal muscle tenderness in the lumbar region on the left side. Musculoskeletal: Normal range of motion. Skin: No lesions or abrasions. Neurological: Alert, GCS 15 MEDICAL DECISION MAKING AND COURSE IN THE ED WITH INTERPRETATION/REVIEW OF DIAGNOSTIC STUDIES: This is a 69-year-old woman with a past medical history of recurrent UTI and unspecified bone cancer who follows up with [facility] regarding her recurrent UTIs and bone cancer who comes to the emergency department with concern for urinary tract infection and right back pain who has evidence of paraspinal muscle tenderness on examination. At this time we will obtain a urinalysis. I did review the patient's prior urine cultures and they have all been susceptible to Keflex which I believe is the antibiotic that she was discussing. Urinalysis was a clean catch and was positive for leukocyte esterase, positive for nitrites, and positive for blood. WBC count 35-40. Interpretation: Positive I did review the patient's prior urinalysis is and it appears that the patient always has microscopic hematuria. After urinalysis I did provide the patient with Keflex by mouth. I discussed with her that I will be prescribing her a prescription to be used twice a day. I discussed the importance of contacting her physician in [facility] for further evaluation. She is to return if any fevers, vomiting, or worsening back pain. She was amenable to discharge at this time and had no further questions DISPOSITION: The patient was discharged home in stable condition. The patient will follow up with her physician at [facility] within 1 to 2 weeks CONDITION: Fair PROCEDURES: None FINAL IMPRESSION(S)/DIAGNOSES: 1. Acute urinary tract infection Doug Singh M.D. left flank Pain Score (Numeric/FACES): 5 - Related Data Allergies Allergy/AdvReac Type Severity Reaction Status Date / Time No Known Allergies Allergy Verified 06/30/20 21:57 Home Meds: Home Meds Calcium Carbonate/Vitamin D3 [Calcium 1,000 + D3 Caplet] 1 tab PO DAILY 06/30/20 [History] Capecitabine 06/30/20 [History] Gabapentin [Neurontin] 1 tab PO BEDTIME 06/30/20 [History] cycloSPORINE [Restasis Multidose] 1 drop EYEBOTH BID 06/30/20 [History] cephALEXin [Keflex] 500 mg PO BID 5 Days #10 capsule 07/01/20 [Rx] Past Medical History HEENT History: Reports: Other (See Below) Other HEENT History: wears glasses Cardiovascular History: Reports: Blood Clots/VTE/DVT Other Cardiovascular History: hx of DVT in left lower leg- took Xarelto Respiratory History: Reports: Other (See Below) Other Respiratory History: 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 Gastrointestinal History: Reports: Diverticulosis Genitourinary History: Reports: UTI, Recurrent, Other (See Below) Other Genitourinary History: states has some decreased kidney function PREFLIGHT MECHANIC History: Reports: Other PREFLIGHT MECHANIC History: "tied my bladder up" Musculoskeletal History: Reports: Other (See Below) Other Musculoskeletal History: osteopenia Neurological History: Psychiatric History: Reports: None Endocrine/Metabolic History: Reports: None Hematologic History: Reports: Anemia Immunologic History: Reports: Other (See Below) Other Immunologic History: Hemophagoctic Lymphohistiocystosis Oncologic (Cancer) History: Reports: Bone, Breast, Ovarian Dermatologic History: Reports: None - Infectious Disease History Infectious Disease History: Reports: Measles, Mumps, Shingles - Past Surgical History Head Surgeries/Procedures: Reports: None HEENT Surgical History: Reports: None Other HEENT Surgeries/Procedures: septum surgery Cardiovascular Surgical History: Reports: None Respiratory Surgical History: Reports: None GI Surgical History: Reports: Colonoscopy, EGD Female Surgical History: Reports: Section, Mastectomy, Salpingo- Oophorectomy, Other (See Below) Other Female Surgeries/Procedures: Kidney stents Endocrine Surgical History: Reports: None Neurological Surgical History: Reports: None Musculoskeletal Surgical History: Reports: None Oncologic Surgical History: Reports: Mastectomy Other Oncologic Surgeries/Procedures: Hysterectomy, BSO Dermatological Surgical History: Reports: None Social & Family History - Family History Family Medical History: Noncontributory - Tobacco Use Smoking Status *Q: Never Smoker - Caffeine Use Caffeine Use: Reports: Coffee - Recreational Drug Use Recreational Drug Use: No ED ROS GENERAL - Review of Systems Review Of Systems: See Below ED EXAM, GENERAL - Physical Exam Exam: See Below Course - Vital Signs Last Recorded V/S: Last Vital Signs Temp 36.2 C 06/30/20 21:54 Pulse 91 06/30/20 21:54 Resp 16 06/30/20 21:54 BP 124/79 06/30/20 21:54 Pulse Ox 99 06/30/20 21:54 - Orders/Labs/Meds Orders: Active Orders 24 hr Category Date Time Status CULTURE URINE [RM] Stat Lab 06/30/20 22:04 Received Labs: Laboratory Tests 06/30/20 Range/Units 22:04 Urine Color YELLOW Urine Appearance SLT CLOUDY Urine pH 7.0 (5.0-8.0) Ur Specific Johnston 1.010 (1.001-1.035) Urine Protein 30 H (NEGATIVE) mg/dL Urine Glucose (UA) NEGATIVE (NEGATIVE) mg/dL Urine Ketones NEGATIVE (NEGATIVE) mg/dL Urine Occult Blood LARGE H (NEGATIVE) Urine Nitrite POSITIVE H (NEGATIVE) Urine Bilirubin NEGATIVE (NEGATIVE) Urine Urobilinogen 0.2 (<2.0) EU/dL Ur Leukocyte Esterase MODERATE H (NEGATIVE) Urine RBC 30-35 (0-2/HPF) Urine WBC 35-40 (0-5/HPF) Ur Epithelial Cells FEW (NONE-FEW) Urine Bacteria 1+ H (NEGATIVE) Urine Mucus LIGHT (NONE-MOD) Meds: Medications Discontinued Medications Generic Name Dose Route Start Last Admin Trade Name Freq PRN Reason Stop Dose Admin Cephalexin 500 mg 07/01/20 01:24 07/01/20 01:40 Keflex PO 07/01/20 01:25 500 mg ONETIME ONE Administration Departure - Departure Time of Disposition: :26 Disposition: Home, Self-Care 01 Condition: Fair Clinical Impression: UTI, Urinary tract infectious disease - Discharge Information Prescriptions: cephALEXin [Keflex] 500 mg PO BID 5 Days #10 capsule Instructions: Urinary Tract Infection, Adult Referrals: Michael Kyle MD [Primary Care Provider] - Forms: ED Department Discharge Additional Instructions: The patient is informed of any results of their evaluation and diagnostic workup and all questions are answered. They are given discharge instructions and return precautions. The patient is stable for discharge. The patient states they understand and agree with the plan and that they will return if their symptoms get worse or if they have any new concerns. The following information is given to patients seen in the emergency department who are being discharged to home. This information is to outline your options for follow-up care. We provide all patients seen in our emergency department with a follow-up referral. The need for follow-up, as well as the timing and circumstances, are variable depending upon the specifics of your emergency department visit. If you don't have a primary care physician on staff, we will provide you with a referral. We always advise you to contact your personal physician following an emergency department visit to inform them of the circumstance of the visit and for follow-up with them and/or the need for any referrals to a consulting specialist. The emergency department will also refer you to a specialist when appropriate. This referral assures that you have the opportunity for follow-up care with a specialist. All of these measure are taken in an effort to provide you with optimal care, which includes your follow-up. Under all circumstances we always encourage you to contact your private physician who remains a resource for coordinating your care. When calling for follow-up care, please make the office aware that this follow-up is from your recent emergency room visit. If for any reason you are refused follow-up, please contact the [facility] Emergency Department at and asked to speak to the emergency department charge nurse. Please follow-up with your primary care physician within 3 to 5 days. If you have any worsening back pain or pain when you pee please return to the emergency department. If you develop a fever please return to the emergency department please. Sepsis Event Note (ED) - Evaluation Sepsis Screening Result: No Definite Risk - Focused Exam Vital Signs: Vital Signs Temp Pulse Resp BP Pulse Ox 06/30/20 21:54 36.2 C 91 16 124/79 99
== END 2020-07-01 01:45 | disposition home or self-care (01) ==
LOC: MW.ED 21:46
DX: N39.0 Urinary tract infection, site not specified (principal); D72.829 Elevated white blood cell count, unspecified
CPT/HCPCS: 81001; 87086; 99283; A9270; 99282

== ENCOUNTER 2021-02-05 16:03 | Emergency (ER) | payer MEDICARE, OTHER ==
[2021-02-05] MEDS ORDERED: Sodium Chloride 0.9% 1,000 ML IV ONE ×2 (16:56→22:15)
--- NOTE | 2021-02-05 18:06 | PCM.EKG ---
#1 Interpretation EKG Date: 02/05/21 Time: 17:56 Rhythm: NSR Rate (Beats/Min): 90 Gay: Normal P-Wave: Present QRS: Normal ST-T: Normal QT: Normal Comparison: No Change (06/10/15) EKG Interpretation Comments: SinuS Rhythm
--- NOTE | 2021-02-05 18:32 | CR ---
INDICATION: Fatigue, history of cancer TECHNIQUE: Chest radiograph 1 view COMPARISON: 07/27/2019 FINDINGS: Mediastinum: The mediastinum is normal in appearance. The heart silhouette is normal in size and morphology. Right Port-A-Cath is present with the tip in the SVC. Lung: Both lungs are unremarkable in appearance. No sign of pleural effusion seen. No pneumothorax is identified. Bone and Soft tissue: Mild levoscoliosis of the thoracic spine is noted without change. IMPRESSION: 1. No acute cardiopulmonary disease is seen. Dictated by Kemar Blanco MD @ 02/05/2021 6:29:31 PM Dictated by: Kemar Blanco MD @ 02/05/2021 18:29:37 (Electronically Signed)
[2021-02-05 19:04] LABS: CORONAVIRUS COVID-19 NAA NEGATIVE (NEGATIVE); INFLUENZA A NAA NEGATIVE (NEGATIVE); INFLUENZA B NAA NEGATIVE (NEGATIVE)
[2021-02-05 19:26] LABS: CARBON DIOXIDE,CO2 23.2 mmol/L (21.0-32.0)
[2021-02-05] MEDS ORDERED: cefTRIAXone 1 GM in Premix Bag 1 BAG IV ONE ×2 (19:31→19:39)
[2021-02-05] MEDS ORDERED: Calcium Gluconate 10% 1 GM/10 ML SDV IVPUSH ONE (19:38)
--- NOTE | 2021-02-05 21:40 | US ---
INDICATION: Bilateral renal stents. Assess flow. TECHNIQUE: Bilateral renal ultrasound. FINDINGS: There is right-sided hydronephrosis with the right kidney measuring 10.6 x 5.3 x 6.3 cm. The right renal cortex measures 1.5 cm. Two renal stents are reportedly present on the right incompletely visualized. There is likely mild left-sided hydronephrosis. The left kidney measures 11.0 x 6.1 x 5.1 cm. The left renal cortex measures 1.5 cm. There is a reported single left renal stent poorly visualized. Consider CT for further evaluation to assess the course of both stents. This could be performed without intravenous contrast. IMPRESSION: Hydronephrosis right greater than left. Bilateral renal stents suboptimally visualized. Consider noncontrast CT for further evaluation. Dictated by Stephan Evans MD @ 02/05/2021 9:39:[address] Stephan Evans @ Feb 05 2021 9:39PM
--- NOTE | 2021-02-05 22:28 | EDM.PDOC ---
ED HPI GENERAL MEDICAL PROBLEM - General Chief Complaint: General Stated Complaint: WEAKNESS Time Seen by Provider: 02/05/21 16:42 Source of Information: Reports: Patient History Limitations: Reports: No Limitations - History of Present Illness INITIAL COMMENTS - FREE TEXT/NARRATIVE: HISTORY AND PHYSICAL: History of present illness: Patient is a 70-year-old female, with a history of metastatic breast cancer spread to the bone, right kidney, and HLH (hemophagocytic lymphohistiocytosis) who presents to the ED today secondary to generalized weakness x4 days. Patient states that she is currently under a chemo regimen where she receives chemotherapy at [facility] with her oncology team at [place] once a week for 3 weeks and then has 1 week off. Patient states that she received her last chemotherapy on . Patient states that she has noticed after receiving care chemotherapy, she gets a few episodes of watery diarrhea. Patient states that as typical, she began giving diarrhea and took Imodium like usual which stopped the diarrhea. Patient states her last episode of diarrhea was on Tuesday. Patient states she started noticing Tuesday evening that she was more tired and did not have the energy to "get chores done "around the house such as the dishes. Patient states that this is unusual for her and she has not gotten out of bed and has had a decrease in appetite. Patient states that she associated this to "dehydration "due to the decrease in appetite with the occasional episodes of diarrhea. Patient denies any associative pain or any other symptoms. Patient denies fever, chills, chest pain, shortness of breath, or cough. Denies headache, neck stiff ness, change in vision, syncope, or near syncope. Denies nausea, vomiting, abdominal pain, or dysuria. Has not noted any blood in urine or stool. Review of systems: As per history of present illness and below otherwise all systems reviewed and negative. Past medical history: As per history of present illness and as reviewed below otherwise noncontributory. Surgical history: As per history of present illness and as reviewed below otherwise noncontributory. Social history: See social history for further information Family history: As per history of present illness and as reviewed below otherwise noncontributory. Physical exam: General: Patient is alert, oriented, and in no acute distress. Patient sitting comfortably on exam table. Tachycardic 115-120 otherwise vitally stable and reviewed by me. HEENT: Atraumatic, normocephalic, pupils equal and reactive bilaterally, n egative for conjunctival pallor or scleral icterus, mucous membranes moist, TMs normal bilaterally, throat clear, neck supple, nontender, trachea midline. No drooling or trismus noted. No meningeal signs. No hot potato voice noted. Lungs: Clear to auscultation, breath sounds equal bilaterally, chest nontender. Heart: S1S2, regular rate and rhythm without overt murmur Abdomen: Soft, nondistended, nontender. Negative for masses or hepatosplenomegaly. Negative for costovertebral tenderness. Pelvis: Stable nontender. Genitourinary: Deferred. Rectal: Power Electronics Engineer at bedside Lulu Manriquez RN. No obvious hemorrhoids, lesions, masses, or fissures noted. Rectal tone intact. No gross blood noted. Hemoccult negative. Skin: Intact, warm, dry. No lesions or rashes noted. Extremities: Atraumatic, negative for cords or calf pain. Neurovascular unremarkable. Neuro: Awake, alert, oriented. Cranial nerves II through XII unremarkable. Cerebellum unremarkable. Motor and sensory unremarkable throughout. Exam nonfocal. Notes: Dr. Toussaint verbally involved in patient case. Patient is a 70-year-old female, with a complex history of metastatic breast cancer, and HLH, who presents emergency room today secondary to weakness. Upon arrival to the ED, patient is tachycardic 115-1 20s on exam, otherwise vitally stable. Tachycardia does resolve shortly prior to any intervention and consistently 80-90. Due to patient's complex medical history as well as worsening weakness, will perform cardiac evaluation and generalized routine labwork due to nonspecific complaint. Patient states that she does have bilateral stents placed in her kidney due to the tumor on the right kidney and not draining appropriately. She states that in the past, she "nearly "due to her HL H and was transferred to [facility] in and was in a coma for 1 to 2 months. Patient states that she has not had any issues with her HLH since 2015. Patient states that she did have to have a blood transfusion in 2015 due to the HLH and states that she had to have a blood transfusion again at the end of December 2020 and had 2 units ordered by her oncologist at [place] and states that her hemoglobin was around 7 at that time. Patient states that she has had repeat lab evaluation with a hemoglobin of 10 on January 28, 2021. Patient states her baseline creatinine is 1.6. See Dr. Singh's dictation for specific EKG interpretation. Otherwise, normal sinus rhythm without evidence of STEMI or acute ischemia. CBC shows a mild leukopenia at 3.99, erythropenic at 2.32, with a decrease in hemoglobin at 7.3 (prior approximately 10 on labwork she has with her from 01/28/21). CMP is remarkable for an acute elevation in creatinine at 3.3 and BUN of 47 (Baseline creat 1.6 as proven by labwork patient has with her on [facility] system). Magnesium is mildly decreased at 1.5. With corrected calcium mildly low at 7.9. Urinalysis shows positive leukocyte esterase with 10-15 red blood cells and too numerous to count white blood cells with 3+ bacteria. Interpretation: Positive. Hemoccult negative. Chest x-ray shows no acute cardiopulmonary findings. Type and screen pending. At this time, patient has received 1 L of normal saline and will initiate Rocephin. Plan to transfuse PRBC however, notified by lab that due to antibody load, will take 24 hours to cross match blood. I did call and speak to the hospitalist on-call, Dr. Wilson, and thoroughly discussed patient's case. She feels that due to patient's complex medical history requiring resources that are not available at our facility, recommends transfer. I did call and speak to Dr. Nascimento, at [facility], and thoroughly discussed patient's case. Accepting of transfer. EMS arranged. Voices understanding and is agreeable to plan of care. Denies any further que stions or concerns at this time. Patient discharged to EMS in stable condition. Diagnostics: EKG, CBC, CMP, UA, chest x-ray, troponin, type and screen/cross, retroperitoneal ultrasound, urine culture, lactic, blood cultures x2, Hemoccult, TSH Therapeutics: NS, Rocephin, Calcium PO Impression: Acute renal failure Urinary tract infection Symptomatic anemia Chronic renal stents, bilateral Hypomagnesia Hypocalcemia History of metastatic breast cancer History of hemophagocytic lymphohistiocytosis (HLH) Plan: Transfer to Dr. Nascimento [facility] via EMS Definitive disposition and diagnosis as appropriate pending reevaluation and review of above. - Related Data Allergies Allergy/AdvReac Type Severity Reaction Status Date / Time No Known Allergies Allergy Verified 02/05/21 16:58 Home Meds: Home Meds Calcium Carbonate/Vitamin D3 [Calcium 1,000 + D3 [place]] 1 tab PO DAILY 06/30/20 [History] Capecitabine 06/30/20 [History] Gabapentin [Neurontin] 1 tab PO BEDTIME 06/30/20 [History] cycloSPORINE [Restasis Multidose] 1 drop EYEBOTH BID 06/30/20 [History] Past Medical History HEENT History: Reports: Other (See Below) Other HEENT History: wears glasses Cardiovascular History: Reports: Blood Clots/VTE/DVT Other Cardiovascular History: hx of DVT in left lower leg- took Xarelto Respiratory History: Reports: Other (See Below) Other Respiratory History: 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 Gastrointestinal History: Reports: Diverticulosis Genitourinary History: Reports: UTI, Recurrent, Other (See Below) Other Genitourinary History: states has some decreased kidney function [employer]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 [employer] STORAGE CLERK History: "tied my bladder up" Musculoskeletal History: Reports: Other (See Below) Other Musculoskeletal History: osteopenia Neurological History: Psychiatric History: Reports: None Endocrine/Metabolic History: Reports: None Hematologic History: Reports: Anemia Immunologic History: Reports: Other (See Below) Other Immunologic History: Hemophagoctic Lymphohistiocystosis Oncologic (Cancer) History: Reports: Bone, Breast, Ovarian Dermatologic History: Reports: None - Infectious Disease History Infectious Disease History: Reports: Measles, Mumps, Shingles - Past Surgical History Head Surgeries/Procedures: Reports: None HEENT Surgical History: Reports: None Other HEENT Surgeries/Procedures: septum surgery Cardiovascular Surgical History: Reports: None Respiratory Surgical History: Reports: None GI Surgical History: Reports: Colonoscopy, EGD Female Surgical History: Reports: Section, Mastectomy, Salpingo- Oophorectomy, Other (See Below) Other Female Surgeries/Procedures: Kidney stents Endocrine Surgical History: Reports: None Neurological Surgical History: Reports: None Musculoskeletal Surgical History: Reports: None Oncologic Surgical History: Reports: Mastectomy Other Oncologic Surgeries/Procedures: Hysterectomy, BSO Dermatological Surgical History: Reports: None Social & Family History - Family History Family Medical History: No Pertinent Family History - Tobacco Use Tobacco Use Status *Q: Never Tobacco User - Caffeine Use Caffeine Use: Reports: Coffee - Recreational Drug Use Recreational Drug Use: No ED ROS GENERAL - Review of Systems Review Of Systems: Comprehensive ROS is negative, except as noted in HPI. ED EXAM, GENERAL - Physical Exam Exam: See Below (See dictation) Course - Vital Signs Last Recorded V/S: Last Vital Signs Temp 98.2 F 02/05/21 18:19 Pulse 86 02/06/21 00:01 Resp 18 02/06/21 00:01 BP 103/37 L 02/06/21 00:01 Pulse Ox 98 02/06/21 00:01 - Orders/Labs/Meds Labs: Laboratory Tests 02/05/21 02/05/21 02/05/21 Range/Units 17:51 17:51 17:51 WBC 3.99 L (4.0-11.0) K/uL RBC 2.32 L (4.30-5.90) M/uL Hgb 7.3 L (12.0-16.0) g/dL Hct 21.7 L (36.0-46.0) % MCV 93.5 (80.0-98.0) fL MCH 31.5 (27.0-32.0) pg MCHC 33.6 (31.0-37.0) g/dL RDW Std Deviation 56.7 (28.0-62.0) fl RDW Coeff of Brandi 17 H (11.0-15.0) % Plt Count 206 (150-400) K/uL MPV 9.60 (7.40-12.00) fL Neut % (Auto) 71.2 (48.0-80.0) % Lymph % (Auto) 14.3 L (16.0-40.0) % Cross % (Auto) 14.5 (0.0-15.0) % Eos % (Auto) 0.0 (0.0-7.0) % Baso % (Auto) 0.0 (0.0-1.5) % Neut # (Auto) 2.8 (1.4-5.7) K/uL Lymph # (Auto) 0.6 (0.6-2.4) K/uL Cross # (Auto) 0.6 (0.0-0.8) K/uL Eos # (Auto) 0.0 (0.0-0.7) K/uL Baso # (Auto) 0.0 (0.0-0.1) K/uL Nucleated RBC % 0.0 /100WBC Nucleated RBCs # 0 K/uL Lactate (0.20-2.00) mmol/L Sodium 137 (136-145) mmol/L Potassium 4.0 (3.5-5.1) mmol/L Chloride 101 (98-107) mmol/L Carbon Dioxide 23.2 (21.0-32.0) mmol/L BUN 47 H (7.0-18.0) mg/dL Creatinine 3.3 H (0.6-1.0) mg/dL Est Cr Clr Drug Dosing 14.09 mL/min Estimated GFR (MDRD) 13.9 ml/min Glucose 111 H (74-106) mg/dL Calcium 7.1 L (8.5-10.1) mg/dL Magnesium 1.5 L (1.8-2.4) mg/dL Total Bilirubin 0.6 (0.2-1.0) mg/dL AST 32 (15-37) IU/L ALT 31 (14-63) IU/L Alkaline Phosphatase 63 (46-116) U/L Troponin I < 0.050 (0.000-0.056) ng/mL Total Protein 6.4 (6.4-8.2) g/dL Albumin 2.4 L (3.4-5.0) g/dL Globulin 4.0 (2.6-4.0) g/dL Albumin/Globulin Ratio 0.6 L (0.9-1.6) Lipase 24 L (73-393) U/L TSH 3rd Generation 1.41 (0.36-3.74) uIU/mL Urine Color Urine Appearance Urine pH (5.0-8.0) Ur Specific [place] (1.001-1.035) Urine Protein (NEGATIVE) mg/dL Urine Glucose (UA) (NEGATIVE) mg/dL Urine Ketones (NEGATIVE) mg/dL Urine Occult Blood (NEGATIVE) Urine Nitrite (NEGATIVE) Urine Bilirubin (NEGATIVE) Urine Urobilinogen (<2.0) EU/dL Ur Leukocyte Esterase (NEGATIVE) Urine RBC (0-2/HPF) Urine WBC (0-5/HPF) Ur Epithelial Cells (NONE-FEW) Urine Bacteria (NEGATIVE) Urine Yeast Influenza Type A RNA (NEGATIVE) Influenza Type B RNA (NEGATIVE) SARS-CoV-2 RNA (ARLET) (NEGATIVE) Blood Type Antibody Screen Prewarmed Antibody Srcn Antibody Identification Cold Antibody Screen Antigen Typing 02/05/21 02/05/21 02/05/21 Range/Units 18:08 18:14 19:47 WBC (4.0-11.0) K/uL RBC (4.30-5.90) M/uL Hgb (12.0-16.0) g/dL Hct (36.0-46.0) % MCV (80.0-98.0) fL MCH (27.0-32.0) pg MCHC (31.0-37.0) g/dL RDW Std Deviation (28.0-62.0) fl RDW Coeff of Brandi (11.0-15.0) % Plt Count (150-400) K/uL MPV (7.40-12.00) fL Neut % (Auto) (48.0-80.0) % Lymph % (Auto) (16.0-40.0) % Cross % (Auto) (0.0-15.0) % Eos % (Auto) (0.0-7.0) % Baso % (Auto) (0.0-1.5) % Neut # (Auto) (1.4-5.7) K/uL Lymph # (Auto) (0.6-2.4) K/uL Cross # (Auto) (0.0-0.8) K/uL Eos # (Auto) (0.0-0.7) K/uL Baso # (Auto) (0.0-0.1) K/uL Nucleated RBC % /100WBC Nucleated RBCs # K/uL Lactate 0.4 (0.20-2.00) mmol/L Sodium (136-145) mmol/L Potassium (3.5-5.1) mmol/L Chloride (98-107) mmol/L Carbon Dioxide (21.0-32.0) mmol/L BUN (7.0-18.0) mg/dL Creatinine (0.6-1.0) mg/dL Est Cr Clr Drug Dosing mL/min Estimated GFR (MDRD) ml/min Glucose (74-106) mg/dL Calcium (8.5-10.1) mg/dL Magnesium (1.8-2.4) mg/dL Total Bilirubin (0.2-1.0) mg/dL AST (15-37) IU/L ALT (14-63) IU/L Alkaline Phosphatase (46-116) U/L Troponin I (0.000-0.056) ng/mL Total Protein (6.4-8.2) g/dL Albumin (3.4-5.0) g/dL Globulin (2.6-4.0) g/dL Albumin/Globulin Ratio (0.9-1.6) Lipase (73-393) U/L TSH 3rd Generation (0.36-3.74) uIU/mL Urine Color YELLOW Urine Appearance SLT CLOUDY Urine pH 6.0 (5.0-8.0) Ur Specific [place] 1.020 (1.001-1.035) Urine Protein 100 H (NEGATIVE) mg/dL Urine Glucose (UA) NEGATIVE (NEGATIVE) mg/dL Urine Ketones NEGATIVE (NEGATIVE) mg/dL Urine Occult Blood LARGE H (NEGATIVE) Urine Nitrite NEGATIVE (NEGATIVE) Urine Bilirubin NEGATIVE (NEGATIVE) Urine Urobilinogen 0.2 (<2.0) EU/dL Ur Leukocyte Esterase LARGE H (NEGATIVE) Urine RBC 10-15 (0-2/HPF) Urine WBC TO NUMEROUS TO COUNT H (0-5/HPF) Ur Epithelial Cells FEW (NONE-FEW) Urine Bacteria 3+ H (NEGATIVE) Urine Yeast MODERATE Influenza Type A RNA NEGATIVE (NEGATIVE) Influenza Type B RNA NEGATIVE (NEGATIVE) SARS-CoV-2 RNA (ARLET) NEGATIVE (NEGATIVE) Blood Type Antibody Screen Prewarmed Antibody Srcn Antibody Identification Cold Antibody Screen Antigen Typing 02/05/21 Range/Units 20:00 WBC (4.0-11.0) K/uL RBC (4.30-5.90) M/uL Hgb (12.0-16.0) g/dL Hct (36.0-46.0) % MCV (80.0-98.0) fL MCH (27.0-32.0) pg MCHC (31.0-37.0) g/dL RDW Std Deviation (28.0-62.0) fl RDW Coeff of Brandi (11.0-15.0) % Plt Count (150-400) K/uL MPV (7.40-12.00) fL Neut % (Auto) (48.0-80.0) % Lymph % (Auto) (16.0-40.0) % Cross % (Auto) (0.0-15.0) % Eos % (Auto) (0.0-7.0) % Baso % (Auto) (0.0-1.5) % Neut # (Auto) (1.4-5.7) K/uL Lymph # (Auto) (0.6-2.4) K/uL Cross # (Auto) (0.0-0.8) K/uL Eos # (Auto) (0.0-0.7) K/uL Baso # (Auto) (0.0-0.1) K/uL Nucleated RBC % /100WBC Nucleated RBCs # K/uL Lactate (0.20-2.00) mmol/L Sodium (136-145) mmol/L Potassium (3.5-5.1) mmol/L Chloride (98-107) mmol/L Carbon Dioxide (21.0-32.0) mmol/L BUN (7.0-18.0) mg/dL Creatinine (0.6-1.0) mg/dL Est Cr Clr Drug Dosing mL/min Estimated GFR (MDRD) ml/min Glucose (74-106) mg/dL Calcium (8.5-10.1) mg/dL Magnesium (1.8-2.4) mg/dL Total Bilirubin (0.2-1.0) mg/dL AST (15-37) IU/L ALT (14-63) IU/L Alkaline Phosphatase (46-116) U/L Troponin I (0.000-0.056) ng/mL Total Protein (6.4-8.2) g/dL Albumin (3.4-5.0) g/dL Globulin (2.6-4.0) g/dL Albumin/Globulin Ratio (0.9-1.6) Lipase (73-393) U/L TSH 3rd Generation (0.36-3.74) uIU/mL Urine Color Urine Appearance Urine pH (5.0-8.0) Ur Specific [place] (1.001-1.035) Urine Protein (NEGATIVE) mg/dL Urine Glucose (UA) (NEGATIVE) mg/dL Urine Ketones (NEGATIVE) mg/dL Urine Occult Blood (NEGATIVE) Urine Nitrite (NEGATIVE) Urine Bilirubin (NEGATIVE) Urine Urobilinogen (<2.0) EU/dL Ur Leukocyte Esterase (NEGATIVE) Urine RBC (0-2/HPF) Urine WBC (0-5/HPF) Ur Epithelial Cells (NONE-FEW) Urine Bacteria (NEGATIVE) Urine Yeast Influenza Type A RNA (NEGATIVE) Influenza Type B RNA (NEGATIVE) SARS-CoV-2 RNA (ARLET) (NEGATIVE) Blood Type O POSITIVE Antibody Screen POSITIVE Prewarmed Antibody Srcn POSITIVE Antibody Identification Anti-K Cold Antibody Screen POSITIVE Antigen Typing K Antigen - NEGATIVE Meds: Medications Discontinued Medications Generic Name Dose Route Start Last Admin Trade Name Freq PRN Reason Stop Dose Admin Calcium Carbonate/Glycine 1,000 mg 02/05/21 22:31 02/06/21 00:51 Calcium Carbonate 500 Mg Tab.Chew PO 02/05/21 22:32 Not Given ONETIME ONE Calcium Gluconate 1 gm 02/05/21 19:38 02/05/21 20:00 Calcium Gluconate 10% 1 Gm/10 Ml Sdv IVPUSH 02/05/21 19:39 Not Given ONETIME ONE Sodium Chloride 1,000 mls @ 999 mls/hr 02/05/21 16:56 02/05/21 17:22 Normal Saline IV 02/05/21 17:56 999 mls/hr BOLUS ONE Administration Ceftriaxone Sodium/Dextrose 1 50 mls @ 100 mls/hr 02/05/21 19:31 02/05/21 20:00 gm/ Premix IV 02/05/21 20:00 Not Given ONETIME ONE Ceftriaxone Sodium/Dextrose 1 50 mls @ 100 mls/hr 02/05/21 19:39 02/05/21 20:00 gm/ Premix IV 02/05/21 20:08 100 mls/hr ONETIME ONE Administration Sodium Chloride 1,000 mls @ 999 mls/hr 02/05/21 22:15 02/05/21 23:30 Normal Saline IV 02/05/21 23:15 999 mls/hr STAT ONE Administration Departure - Departure Time of Disposition: 22:42 Disposition: DC/Tfer to [facility] 02 Clinical Impression: Hypomagnesemia, Hypocalcemia, History of metastatic neoplastic disease, Hemophagocytic lymphohistiocytosis, Symptomatic anemia Acute renal failure Qualifiers: Acute renal failure type: unspecified Qualified Code(s): N17.9 - Acute kidney failure, unspecified Urinary tract infection Qualifiers: Urinary tract infection type: site unspecified Hematuria presence: without hematuria Qualified Code(s): N39.0 - Urinary tract infection, site not specified - Discharge Information Referrals: Michael Kyle MD [Primary Care Provider] - Forms: ED Department Discharge Sepsis Event Note (ED) - Evaluation Sepsis Screening Result: No Definite Risk
[2021-02-05] MEDS ORDERED: Calcium Carbonate 500 MG Tab.Chew PO ONE (22:31)
[2021-02-06 00:03] VITALS: BP 103/37; PULSE 86
== END 2021-02-06 00:25 ==
LOC: MW.ED 16:03
DX: N39.0 Urinary tract infection, site not specified (principal); N17.9 Acute kidney failure, unspecified; E83.42 Hypomagnesemia; E83.51 Hypocalcemia; D64.9 Anemia, unspecified; D76.1 Hemophagocytic lymphohistiocytosis; Z85.9 Personal history of malignant neoplasm, unspecified; Z86.718 Personal history of other venous thrombosis and embolism; Z79.01 Long term (current) use of anticoagulants; Z20.822 Contact with and (suspected) exposure to COVID-19
CPT/HCPCS: 0240U; 36415; 71045; 76775; 80053; 81001; 83605; 83690; 83735; 84443; 84484; 85025; 86156; 86850; 86870; 86900; 86901; 86902; 87040; 87086; 93005; 96365; 99285; J0696; J7030

== ENCOUNTER 2021-03-03 13:40 | Emergency (ER) | payer MEDICARE, OTHER ==
[2021-03-03] MEDS ORDERED: Sodium Chloride 0.9% 1,000 ML IV ONE (14:22)
--- NOTE | 2021-03-03 14:31 | EDM.PDOC ---
ED HPI GENERAL MEDICAL PROBLEM - General Chief Complaint: General Stated Complaint: DEHYDRATED Time Seen by Provider: 03/03/21 13:58 Source of Information: Reports: Patient History Limitations: Reports: No Limitations - History of Present Illness INITIAL COMMENTS - FREE TEXT/NARRATIVE: Patient is a 70-year-old female history of cancer on currently on chemo presents today for weakness and fatigue. Patient states that her last chemo was and is a week off and since her last session she has not been eating drinking as much has been sleeping mostly which is normal after her chemo sessions. Patient denies any fevers or chills decreased. Urine output shortness of breath or other complaints. - Related Data Allergies Allergy/AdvReac Type Severity Reaction Status Date / Time No Known Allergies Allergy Verified 03/03/21 13:59 Home Meds: Home Meds Calcium Carbonate/Vitamin D3 [Calcium 1,000 + D3 Caplet] 1 tab PO DAILY 06/30/20 [History] Gabapentin [Neurontin] 1 tab PO BEDTIME 06/30/20 [History] cycloSPORINE [Restasis Multidose] 1 drop EYEBOTH BID 06/30/20 [History] Past Medical History HEENT History: Reports: Other (See Below) Other HEENT History: wears glasses Cardiovascular History: Reports: Blood Clots/VTE/DVT Other Cardiovascular History: hx of DVT in left lower leg- took Xarelto Respiratory History: Reports: Other (See Below) Other Respiratory History: 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 PROPERTY MAINTENANCE TECHNICIAN History: "tied my bladder up" Musculoskeletal History: Reports: Other (See Below) Other Musculoskeletal History: osteopenia Neurological History: Psychiatric History: Reports: None Endocrine/Metabolic History: Reports: None Hematologic History: Reports: Anemia Immunologic History: Reports: Other (See Below) Other Immunologic History: Hemophagoctic Lymphohistiocystosis Oncologic (Cancer) History: Reports: Bone, Breast, Ovarian Dermatologic History: Reports: None - Infectious Disease History Infectious Disease History: Reports: Measles, Mumps, Shingles - Past Surgical History Head Surgeries/Procedures: Reports: None HEENT Surgical History: Reports: None Other HEENT Surgeries/Procedures: septum surgery Cardiovascular Surgical History: Reports: None Respiratory Surgical History: Reports: None GI Surgical History: Reports: Colonoscopy, EGD Female Surgical History: Reports: Section, Mastectomy, Salpingo- Oophorectomy, Other (See Below) Other Female Surgeries/Procedures: Kidney stents Endocrine Surgical History: Reports: None Neurological Surgical History: Reports: None Musculoskeletal Surgical History: Reports: None Oncologic Surgical History: Reports: Mastectomy Other Oncologic Surgeries/Procedures: Hysterectomy, BSO Dermatological Surgical History: Reports: None Social & Family History - Family History Family Medical History: No Pertinent Family History - Tobacco Use Tobacco Use Status *Q: Never Tobacco User - Caffeine Use Caffeine Use: Reports: Coffee - Recreational Drug Use Recreational Drug Use: No ED ROS GENERAL - Review of Systems Review Of Systems: See Below Constitutional: Reports: No Symptoms HEENT: Reports: No Symptoms Respiratory: Reports: No Symptoms Cardiovascular: Reports: No Symptoms Endocrine: Reports: No Symptoms GI/Abdominal: Reports: Nausea, Vomiting : Reports: No Symptoms Musculoskeletal: Reports: No Symptoms Skin: Reports: No Symptoms Neurological: Reports: No Symptoms Psychiatric: Reports: No Symptoms Hematologic/Lymphatic: Reports: No Symptoms Immunologic: Reports: No Symptoms ED EXAM, GENERAL - Physical Exam Exam: See Below Exam Limited By: No Limitations General Appearance: Alert, WD/WN, No Apparent Distress Eye Exam: Bilateral Eye: EOMI, PERRL Respiratory/Chest: No Respiratory Distress, Lungs Clear, Normal Breath Sounds Cardiovascular: Normal Peripheral Pulses, Regular Rate, Rhythm GI/Abdominal: Normal Bowel Sounds, Soft, Non-Tender Extremities: Normal Inspection, Normal Range of Motion Neurological: Alert, Oriented, Normal Cognition, Normal Gait Course - Vital Signs Last Recorded V/S: Last Vital Signs Temp 97.5 F 03/03/21 15:56 Pulse 90 03/03/21 15:56 Resp 18 03/03/21 15:56 BP 115/37 L 03/03/21 15:56 Pulse Ox 98 03/03/21 15:56 - Orders/Labs/Meds Orders: Active Orders 24 hr Category Date Time Status Sodium Chloride 0.9% [Normal Saline] 1,000 ml Med 03/03/21 15:30 Active IV ASDIRECTED Medication Orders Sodium Chloride (Normal Saline) 1,000 mls @ 1,000 mls/hr IV ASDIRECTED EMMA Last Admin: 06/08/21 15:53 Dose: 1,000 mls/hr Documented by: [facility] Labs: Laboratory Tests 03/03/21 03/03/21 Range/Units 14:20 14:20 WBC 2.00 L (4.0-11.0) K/uL RBC 2.60 L (4.30-5.90) M/uL Hgb 7.8 L (12.0-16.0) g/dL Hct 23.4 L (36.0-46.0) % MCV 90.0 (80.0-98.0) fL MCH 30.0 (27.0-32.0) pg MCHC 33.3 (31.0-37.0) g/dL RDW Std Deviation 53.1 (28.0-62.0) fl RDW Coeff of Brandi 16 H (11.0-15.0) % Plt Count 148 L (150-400) K/uL MPV 10.60 (7.40-12.00) fL Neut % (Auto) 62.0 (48.0-80.0) % Lymph % (Auto) 35.5 (16.0-40.0) % [place] % (Auto) 2.5 (0.0-15.0) % Eos % (Auto) 0.0 (0.0-7.0) % Baso % (Auto) 0.0 (0.0-1.5) % Neut # (Auto) 1.2 L (1.4-5.7) K/uL Lymph # (Auto) 0.7 (0.6-2.4) K/uL [place] # (Auto) 0.1 (0.0-0.8) K/uL Eos # (Auto) 0.0 (0.0-0.7) K/uL Baso # (Auto) 0.0 (0.0-0.1) K/uL Nucleated RBC % 0.0 /100WBC Nucleated RBCs # 0 K/uL Sodium 138 (136-145) mmol/L Potassium 4.1 (3.5-5.1) mmol/L Chloride 102 (98-107) mmol/L Carbon Dioxide 24.2 (21.0-32.0) mmol/L BUN 39 H (7.0-18.0) mg/dL Creatinine 1.8 H (0.6-1.0) mg/dL Est Cr Clr Drug Dosing 25.83 mL/min Estimated GFR (MDRD) 28.0 ml/min Glucose 103 (74-106) mg/dL Calcium 7.9 L (8.5-10.1) mg/dL Total Bilirubin 1.0 (0.2-1.0) mg/dL AST 30 (15-37) IU/L ALT 63 (14-63) IU/L Alkaline Phosphatase 60 (46-116) U/L Total Protein 5.9 L (6.4-8.2) g/dL Albumin 2.2 L (3.4-5.0) g/dL Globulin 3.7 (2.6-4.0) g/dL Albumin/Globulin Ratio 0.6 L (0.9-1.6) Meds: Medications Generic Name Dose Route Start Last Admin Trade Name Freq PRN Reason Stop Dose Admin Sodium Chloride 1,000 mls @ 1,000 mls/hr 03/03/21 15:30 03/03/21 15:53 Normal Saline IV 1,000 mls/hr ASDIRECTED EMMA Administration Discontinued Medications Generic Name Dose Route Start Last Admin Trade Name Freq PRN Reason Stop Dose Admin Calcium Gluconate 1 gm 03/03/21 15:29 03/03/21 15:53 Calcium Gluconate 10% 1 Gm/10 Ml Sdv IVPUSH 03/03/21 15:30 1 gm ONETIME ONE Administration Sodium Chloride 1,000 mls @ 999 mls/hr 03/03/21 14:22 03/03/21 14:28 Normal Saline IV 03/03/21 15:22 999 mls/hr .BOLUS ONE Administration Departure - Departure Time of Disposition: 16:54 Disposition: Home, Self-Care 01 Condition: Good Clinical Impression: Dehydration - Discharge Information *PRESCRIPTION DRUG MONITORING PROGRAM REVIEWED*: Not Applicable *COPY OF PRESCRIPTION DRUG MONITORING REPORT IN PATIENT FRANKIE: Not Applicable Instructions: Dehydration, Elderly Referrals: Michael Kyle MD [Primary Care Provider] - Forms: ED Department Discharge Additional Instructions: The following information is given to patients seen in the emergency department who are being discharged to home. This information is to outline your options for follow-up care. We provide all patients seen in our emergency department with a follow-up referral. The need for follow-up, as well as the timing and circumstances, are variable depending upon the specifics of your emergency department visit. If you don't have a primary care physician on staff, we will provide you with a referral. We always advise you to contact your personal physician following an emergency department visit to inform them of the circumstance of the visit and for follow-up with them and/or the need for any referrals to a consulting specialist. The emergency department will also refer you to a specialist when appropriate. This referral assures that you have the opportunity for follow-up care with a specialist. All of these measure are taken in an effort to provide you with optimal care, which includes your follow-up. Under all circumstances we always encourage you to contact your private physician who remains a resource for coordinating your care. When calling for follow-up care, please make the office aware that this follow-up is from your recent emergency room visit. If for any reason you are refused follow-up, please contact the [facility] Department at and asked to speak to the emergency department charge nurse. Please follow up with your primary care physician. If you do not have a primary care physician, see below: [facility] [address] [place] [id number] My [facility] [address] [place] [id number] You were seen today for weakness and likely dehydration we gave you 2 L of fluid your blood pressure and heart rate both improved. Your creatinine is also improved from your previous visit. If you go home and having any other concer zaida signs or symptoms please return to the ED otherwise continue to follow-up with your oncologist for chemotherapy. Sepsis Event Note (ED) - Evaluation Sepsis Screening Result: No Definite Risk - Focused Exam Vital Signs: Vital Signs Temp Pulse Resp BP Pulse Ox 03/03/21 15:56 97.5 F 90 18 115/37 L 98 03/03/21 15:10 91 18 103/47 L 98 03/03/21 14:09 97 97/37 L 99 03/03/21 14:02 97.9 F 96 83/37 L 99 - My Orders Last 24 Hours: My Active Orders 03/03/21 15:30 Sodium Chloride 0.9% [Normal Saline] 1,000 ml IV ASDIRECTED - Assessment/Plan Last 24 Hours: My Active Orders 03/03/21 15:30 Sodium Chloride 0.9% [Normal Saline] 1,000 ml IV ASDIRECTED Plan: Patient 70-year-old female currently on chemo presents today for nausea vomiting fatigue. Will provide fluids obtain labs and reassess patient.
[2021-03-03 15:12] LABS: CARBON DIOXIDE,CO2 24.2 mmol/L (21.0-32.0); POTASSIUM,K 4.1 mmol/L (3.5-5.1)
[2021-03-03] MEDS ORDERED: Calcium Gluconate 10% 1 GM/10 ML SDV IVPUSH ONE (15:29)
[2021-03-03] MEDS ORDERED: Sodium Chloride 0.9% 1,000 ML IV SCH (15:30)
[2021-03-03 17:21] VITALS: BP 116/52; PULSE 82
== END 2021-03-03 17:14 | disposition home or self-care (01) ==
LOC: MW.ED 13:40
DX: E86.0 Dehydration (principal)
CPT/HCPCS: 36415; 80053; 85025; 96374; 99284; J0610; J7030

== ENCOUNTER 2021-10-23 11:26 | Observation (INO) | payer MEDICARE, OTHER ==
[2021-10-23] MEDS ORDERED: Sodium Chloride 0.9% 10 ML Syringe FLUSH PRN (11:27)
[2021-10-23] MEDS ORDERED: Sodium Chloride 0.9% 2.5 ML Syringe FLUSH PRN (11:27)
[2021-10-23] MEDS ORDERED: Sodium Chloride 0.9% 1,000 ML IV ONE (11:27)
[2021-10-23 11:59] LABS: BLOOD UREA NITROGEN,BUN 46 mg/dL (7.0-18.0); CARBON DIOXIDE,CO2 19.3 mmol/L (21.0-32.0); CHLORIDE,CL 106 mmol/L (98-107); GLUCOSE RANDOM 117 mg/dL (74-106); LIPASE 10 U/L (73-393); POTASSIUM,K 3.9 mmol/L (3.5-5.1); SODIUM,NA 140 mmol/L (136-145)
[2021-10-23] MEDS ORDERED: Lactated Ringers 1,000 ML IV ONE (12:18)
[2021-10-23] MEDS ORDERED: Ondansetron 4 MG/2 ML SDV IVPUSH PRN (15:57)
[2021-10-23] MEDS ORDERED: Albuterol/Ipratropium 3.0-0.5 MG/3 ML Neb Soln NEB PRN (15:57)
[2021-10-23] MEDS ORDERED: Heparin Sodium 5,000 Units/ML Vial SUBCUT SCH (16:00)
[2021-10-23] MEDS ORDERED: Calcium Gluconate 10% 1 GM/10 ML SDV IV ONE (16:34)
[2021-10-23] MEDS: Lactated Ringers 1,000 ML IV SCH (18:30)
[2021-10-23] MEDS: Gabapentin 300 MG Cap PO SCH (20:41)
[2021-10-23] MEDS: Heparin Sodium 5,000 Units/ML Vial SUBCUT SCH (20:42)
[2021-10-23] MEDS ORDERED: Non-Formulary Medication 1 Each (Cyclosporine [Restasis Multidose] 5.5 ML Drops) EYEBOTH SCH (21:00)
[2021-10-24] MEDS: Lactated Ringers 1,000 ML IV SCH ×2 (04:45→17:25)
[2021-10-24] MEDS ORDERED: DRONABINOL 5 MG PO SCH (08:00)
[2021-10-24 08:32] LABS: CARBON DIOXIDE,CO2 18.9 mmol/L (21.0-32.0); POTASSIUM,K 4.6 mmol/L (3.5-5.1)
[2021-10-24] MEDS ORDERED: Dronabinol 2.5 MG Cap PO SCH (08:35)
[2021-10-24] MEDS: Pantoprazole 40 MG in Sodium Chloride 0.9% 10 ML IVPUSH SCH (08:43)
[2021-10-24] MEDS ORDERED: TAMOXIFEN CITRATE 20 MG PO SCH (09:00)
[2021-10-24] MEDS ORDERED: Pantoprazole 40 MG in Sodium Chloride 0.9% 10 ML IVPUSH SCH (09:00)
[2021-10-24] MEDS ORDERED: Tamoxifen 10 MG Tab PO SCH (09:00)
[2021-10-24] MEDS ORDERED: OXYBUTYNIN 5 MG PO SCH (09:00)
[2021-10-24] MEDS: Dronabinol 2.5 MG Cap PO SCH ×2 (09:44→17:25)
[2021-10-24] MEDS: Heparin Sodium 5,000 Units/ML Vial SUBCUT SCH (09:44)
[2021-10-24] MEDS: CYCLOSPORINE 0.05% EYEBOTH SCH ×2 (09:45→21:54)
[2021-10-24] MEDS: Tamoxifen 10 MG Tab PO SCH (09:45)
[2021-10-24] MEDS ORDERED: Calcium Gluconate 10% 1 GM/10 ML SDV IV ONE (11:32)
[2021-10-24] MEDS ORDERED: Lactated Ringers 500 ML IV SCH ×2 (12:45→15:00)
[2021-10-24] MEDS: Gabapentin 300 MG Cap PO SCH (22:04)
[2021-10-25] MEDS: Lactated Ringers 1,000 ML IV SCH ×2 (03:18→16:22)
[2021-10-25] MEDS: Dronabinol 2.5 MG Cap PO SCH ×2 (08:43→17:16)
[2021-10-25] MEDS: Pantoprazole 40 MG in Sodium Chloride 0.9% 10 ML IVPUSH SCH (08:43)
[2021-10-25] MEDS: ABEMACICLIB 150 MG PO SCH ×2 (08:50→08:52)
[2021-10-25] MEDS: Tamoxifen 10 MG Tab PO SCH (08:53)
[2021-10-25] MEDS: CYCLOSPORINE 0.05% EYEBOTH SCH ×2 (08:53→20:50)
[2021-10-25 09:05] LABS: CARBON DIOXIDE,CO2 20.8 mmol/L (21.0-32.0); POTASSIUM,K 4.5 mmol/L (3.5-5.1)
[2021-10-25] MEDS: cefTRIAXone 1 GM in Sodium Chloride 0.9% 50 ML IV SCH (10:51)
[2021-10-25] MEDS: Gabapentin 300 MG Cap PO SCH (20:51)
[2021-10-26] MEDS: Dronabinol 2.5 MG Cap PO SCH (08:46)
[2021-10-26] MEDS ORDERED: Loperamide 2 MG Cap PO PRN (08:47)
[2021-10-26] MEDS: CYCLOSPORINE 0.05% EYEBOTH SCH (08:51)
[2021-10-26] MEDS: Pantoprazole 40 MG in Sodium Chloride 0.9% 10 ML IVPUSH SCH (08:51)
[2021-10-26] MEDS: ABEMACICLIB 150 MG PO SCH (08:52)
[2021-10-26] MEDS ORDERED: TAMOXIFEN 20 MG PO SCH (09:00)
[2021-10-26] MEDS ORDERED: Loperamide 2 MG Cap PO ONE (09:00)
[2021-10-26] MEDS ORDERED: Gabapentin 300 MG Cap PO SCH (09:00)
[2021-10-26] MEDS: cefTRIAXone 1 GM in Sodium Chloride 0.9% 50 ML IV SCH (10:42)
[2021-10-26 12:22] VITALS: BP 93/44; PULSE 85
[2021-10-26] MEDS: Lactated Ringers 1,000 ML IV SCH (12:23)
== END 2021-10-26 15:15 | disposition home or self-care (01) ==
LOC: MW.ED 11:26 → MW.MS 14:01
PROVIDERS: ADMIT Student in an Organized Health Care Education/Training Program; ATTEND Student in an Organized Health Care Education/Training Program
DX: R11.0 Nausea (principal); T45.1X5A Adverse effect of antineoplastic and immunosuppressive drugs, initial encounter; N17.9 Acute kidney failure, unspecified; E86.0 Dehydration; E83.51 Hypocalcemia; D64.9 Anemia, unspecified; N39.0 Urinary tract infection, site not specified; Z79.899 Other long term (current) drug therapy; Z98.890 Other specified postprocedural states; Z20.822 Contact with and (suspected) exposure to COVID-19
CPT/HCPCS: 36415; 71045; 74176; 80048; 80053; 81001; 83690; 83735; 84100; 85025; 87086; 96365; 96366; 96367; 96372; 96375; 96376; 99285; A9270; C9113; G0378; J0610; J0696; J1642; J1644; J7120; P9016; Q0167; U0002; 87088; 87186

== ENCOUNTER 2022-03-12 19:43 | Emergency (ER) | payer MEDICARE, OTHER ==
[2022-03-12] MEDS ORDERED: Ondansetron 4 MG/2 ML SDV IVPUSH ONE (23:30)
[2022-03-12] MEDS ORDERED: Dextrose 5%-Lactated Ringers 1,000 ML IV SCH (23:30)
[2022-03-13] MEDS ORDERED: Dextrose 5%-Lactated Ringers 1,000 ML IV STA (00:19)
[2022-03-13] MEDS ORDERED: Magnesium Sulfate/Water 2 GM in Premix Bag 1 BAG IV ONE (00:21)
[2022-03-13 00:45] LABS: CARBON DIOXIDE,CO2 25.8 mmol/L (21.0-32.0); POTASSIUM,K 4.4 mmol/L (3.5-5.1)
[2022-03-13] MEDS ORDERED: Midodrine 5 MG Tab PO STA (01:46)
[2022-03-13] MEDS ORDERED: Heparin Sodium 100 Units/ML 3 ML Syringe FLUSH STA ×2 (03:58→04:54)
[2022-03-13 05:11] VITALS: BP 110/51; PULSE 86
== END 2022-03-13 05:10 | disposition home or self-care (01) ==
LOC: MW.ED 19:43
DX: R11.2 Nausea with vomiting, unspecified (principal); E86.0 Dehydration; Z20.822 Contact with and (suspected) exposure to COVID-19; Z79.899 Other long term (current) drug therapy; Z88.8 Allergy status to other drugs, medicaments and biological substances
CPT/HCPCS: 36415; 71045; 80053; 83605; 83690; 83735; 84439; 84443; 84484; 85025; 85610; 93005; 96365; 96366; 96375; 99284; A9270; J1642; J2405; J3475; J7121; U0002; 93010

== ENCOUNTER 2022-03-16 13:47 | Emergency (ER) | payer MEDICARE, OTHER ==
[2022-03-16] MEDS ORDERED: Sodium Chloride 0.9% 2.5 ML Syringe FLUSH PRN (13:58)
[2022-03-16] MEDS ORDERED: Sodium Chloride 0.9% 10 ML Syringe FLUSH PRN (13:58)
[2022-03-16] MEDS ORDERED: Sodium Chloride 0.9% 1,000 ML IV ONE (14:11)
[2022-03-16] MEDS ORDERED: Ondansetron 4 MG/2 ML SDV IVPUSH ONE ×2 (14:33→17:12)
[2022-03-16] MEDS ORDERED: Alum Hydro/Mag Hydro/Simeth XS 15 ML, Metoclopramide 5 MG, Lidocaine 2% 5 ML PO ONE ×3 (14:33)
[2022-03-16] MEDS ORDERED: cefTRIAXone 1 GM in Sodium Chloride 0.9% 50 ML IV ONE (15:08)
[2022-03-16 15:27] LABS: CARBON DIOXIDE,CO2 22.1 mmol/L (21.0-32.0); POTASSIUM,K 3.9 mmol/L (3.5-5.1)
[2022-03-16 15:28] LABS: CORONAVIRUS COVID-19 NAA NEGATIVE (NEGATIVE); INFLUENZA A NAA NEGATIVE (NEGATIVE); INFLUENZA B NAA NEGATIVE (NEGATIVE)
[2022-03-16 16:29] VITALS: BP 131/57; PULSE 79
== END 2022-03-16 17:26 ==
LOC: MW.ED 13:47
DX: D64.9 Anemia, unspecified (principal); N39.0 Urinary tract infection, site not specified; Z85.3 Personal history of malignant neoplasm of breast; Z20.822 Contact with and (suspected) exposure to COVID-19
CPT/HCPCS: 0240U; 36415; 71045; 80053; 81001; 82040; 83690; 83735; 84484; 85025; 86850; 86870; 86900; 86901; 87086; 93005; 96361; 96365; 96375; 96376; 99285; A9270; J0696; J2405; J3490; J7030